=== PATIENT | male | born 1980 | race Caucasian/White ===

== ENCOUNTER 2017-03-12 13:23 | Emergency (ER) | payer BC, OTHER ==
[2017-03-12] MEDS ORDERED: CLONIDINE HCL 0.2 MG TABLET PO ONE (13:45)
--- NOTE | 2017-03-12 13:45 | ER Document Report ---
ED Medical Screen (RME) - General Chief Complaint: High Blood Pressure Stated Complaint: BLOOD PRESSURE PROBLEMS Time Seen by Provider: 03/12/17 13:41 Mode of Arrival: Ambulatory Information source: Patient Notes: 36-year-old diabetic male history of hypertension who is on 20 mg lisinopril daily presents with complaints of high blood pressure headache. Patient notes that he has been off for 2 days he has been taking Tylenol for it. Patient did have recent surgery on his eyes well I have greeted and performed a rapid initial assessment of this patient. A comprehensive ED assessment and evaluation of the patient, analysis of test results and completion of the medical decision making process will be conducted by additional ED providers. PHYSICAL EXAMINATION: GENERAL: Well-appearing, well-nourished and in no acute distress. HEAD: Atraumatic, normocephalic. EYES: Pupils equal round extraocular movements intact, left conjunctive injected ENT: Nares patent NECK: Normal range of motion LUNGS: No respiratory distress Musculoskeletal: Normal range of motion NEUROLOGICAL: Normal speech, normal gait. PSYCH: Normal mood, normal affect. SKIN: Warm, Dry, normal turgor, no rashes or lesions noted. TRAVEL OUTSIDE OF THE [place] IN LAST 30 DAYS: No - Related Data Allergies/Adverse Reactions: No Known Allergies Allergy (Verified 06/15/14 19:55) Past Medical History - Past Medical History Cardiac Medical History: Reports: Hx Hypercholesterolemia Endocrine Medical History: Reports: Hx Diabetes Mellitus Type 2 Renal/ Medical History: Denies: Hx Peritoneal Dialysis - Immunizations Immunizations up to date: Yes Hx Diphtheria, Pertussis, Tetanus Vaccination: Yes Physical Exam - Vital signs Vitals: Temp Pulse Resp BP Pulse Ox 98 F 102 H 16 216/121 H 96 03/12/17 13:26 03/12/17 13:26 03/12/17 13:26 03/12/17 13:26 03/12/17 13:26 Course - Vital Signs Vital signs: Temp Pulse Resp BP Pulse Ox 98 F 102 H 16 216/121 H 96 03/12/17 13:26 03/12/17 13:26 03/12/17 13:26 03/12/17 13:26 03/12/17 13:26
[2017-03-12] MEDS ORDERED: HYDRALAZINE HCL INJ/PF 20 MG/1 ML SDV IV ONE (14:28)
[2017-03-12] MEDS ORDERED: ONDANSETRON HCL INJ/PF 4 MG/2 ML SDV IV ONE (14:28)
--- NOTE | 2017-03-12 14:31 | RADIOLOGY REPORT (SQ) ---
EXAM DESCRIPTION: CT HEAD WITHOUT COMPLETED DATE/TIME: 03/12/2017 2:12 pm REASON FOR STUDY: headache, htn COMPARISON: 2014. TECHNIQUE: Axial images acquired through the brain without intravenous contrast. Images reviewed wi th bone, brain and subdural windows. Images stored on PACS. All CT scanners at this facility use dose modulation, iterative reconstruction, and/or weight based d osing when appropriate to reduce radiation dose to as low as reasonably achievable (ALARA). [facility]: Dose Right [facility]: CareDose [facility]: Dose Right [facility]: Teradose 4D [facility]: Smart TweepsMap RADIATION DOSE: Up-to-date CT equipment and radiation dose reduction techniques were employed. CTDIv ol: 64.6 mGy. DLP: 1163 mGy-cm. mGy. LIMITATIONS: None. FINDINGS: VENTRICLES: Normal size and contour. CEREBRUM: No masses. No hemorrhage. No midline shift. No evidence for acute infarction. Normal gra y/white matter differentiation. No areas of low density in the white matter. CEREBELLUM: No masses. No hemorrhage. No alteration of density. No evidence for acute infarction. EXTRAAXIAL SPACES: No fluid collections. No masses. ORBITS AND GLOBE: No intra- or extraconal masses. Normal contour of globe without masses. CALVARIUM: No fracture. PARANASAL SINUSES: No fluid or mucosal thickening. SOFT TISSUES: No mass or hematoma. OTHER: No other significant finding. IMPRESSION: NORMAL BRAIN CT WITHOUT CONTRAST. EVIDENCE OF ACUTE STROKE: NO. COMMENT: Quality ID # [id number]: Final reports with documentation of one or more dose reduction techniques (e.g., Automated exposure control, adjustment of the mA and/or kV according to patient size, use of iterative reconstruction technique) TECHNICAL DOCUMENTATION: JOB ID: [id number]- All Rights Reserved
[2017-03-12 14:58] LABS: ABSOLUTE BASOPHILS # (AUTO) 0.1 10^3/uL (0.0-0.2); ABSOLUTE LYMPHOCYTES (AUTO) 0.9 10^3/uL (0.5-4.7); ABSOLUTE MONOCYTES (AUTO) 0.3 10^3/uL (0.1-1.4); ABSOLUTE NEUT (AUTO) 5.5 10^3/uL (1.7-8.2); BASOPHILS % (AUTO) 0.8 % (0-2); EOSINOPHILS % (AUTO) 0.6 % (0-6); HEMATOCRIT 36.2 % (37.9-51.0); HEMOGLOBIN 12.9 g/dL (13.5-17.0); HGB HCT DIFFERENCE 2.5; LYMPHOCYTES % (AUTO) 12.7 % (13-45); MEAN CORPUSCULAR HEMOGLOBIN 30.4 pg (27.0-33.4); MEAN CORPUSCULAR HGB CONC 35.7 g/dL (32.0-36.0); MEAN CORPUSCULAR VOLUME 85 fl (80-97); MONOCYTES % (AUTO) 4.6 % (3-13); RED BLOOD COUNT 4.26 10^6/uL (4.35-5.55); RED CELL DISTRIBUTION WIDTH 13.8 % (11.5-14.0); SEGMENTED NEUTROPHILS % (AUTO) 81.3 % (42-78); WHITE BLOOD COUNT 6.8 10^3/uL (4.0-10.5)
[2017-03-12 15:09] LABS: ALANINE AMINOTRANSFERASE 52 U/L (21-72); ALKALINE PHOSPHATASE 85 U/L (38-126); ANION GAP 11 (5-19); ASPARTATE AMINO TRANSFERASE 31 U/L (17-59); BILIRUBIN,DIRECT 0.5 mg/dL (0.0-0.4); BILIRUBIN,TOTAL 1.7 mg/dL (0.2-1.3); BLOOD UREA NITROGEN 24 mg/dL (7-20); CARBON DIOXIDE 26 mmol/L (22-30); CHLORIDE 109 mmol/L (98-107); CREATININE RESULT 1.88 mg/dL (0.52-1.25); GLUCOSE 239 mg/dL (75-110); POTASSIUM 4.6 mmol/L (3.6-5.0); SODIUM 146.2 mmol/L (137-145); TOTAL PROTEIN 7.2 g/dL (6.3-8.2)
[2017-03-12] MEDS ORDERED: LORAZEPAM INJ 2 MG/1 ML VIAL IV ONE (15:22)
--- NOTE | 2017-03-12 15:25 | ER Document Report ---
ED General - General Mode of Arrival: Ambulatory Information source: Patient, Relative TRAVEL OUTSIDE OF THE [place] IN LAST 30 DAYS: No - HPI Patient complains to provider of: Headaches Onset: Yesterday Onset/Duration: Sudden <BENJAMIN FRIED - Last Filed: 03/12/17 23:35> <BELLBEATRISSTEVEN - Last Filed: 03/12/17 23:46> - General Chief Complaint: High Blood Pressure Stated Complaint: BLOOD PRESSURE PROBLEMS Time Seen by Provider: 03/12/17 13:41 Notes: Patient is a 36 year old male that presents to the emergency department for complaints of headaches and high blood pressure onset last night. Patient states that he had a severe headache last night after he got home from work for which he took 2 Tylenol that did not alleviate his pain. Patient states he was then awoken from his sleep around 1:30 am with the same headache and took some more Tylenol, with no help. Patient states that his headache persisted and his took his blood pressure which was a 222/134 for which he then decided to come to the emergency department. Patient also complains of nausea, vomiting, neck stiffness and mild photophobia. Patient denies diarrhea or fever. Patient normally takes 20 mg of lisinopril daily. Patient states that he recently had left eye surgery due to retinopathy and bleeding. (BENJAMIN FRIED) - Related Data Allergies/Adverse Reactions: No Known Allergies Allergy (Verified 06/15/14 19:55) Home Medications: Current Home Medications Atropine Sulfate [Atropine 1% Oph Soln 5 ml] 1 drop DAILY 03/12/17 [History] Neomycin/Polymyxin B/Dexametha [Maxitrol Eye Ointment] 3.5 gm OP Q6H 03/12/17 [ History] Past Medical History - General Information source: Patient, Relative - Social History Smoking Status: Never Smoker Smoking Education Provided: No Frequency of alcohol use: None Drug Abuse: None Family History: Reviewed & Not Pertinent Patient has suicidal ideation: No Patient has homicidal ideation: No - Past Medical History Cardiac Medical History: Reports: Hx Hypercholesterolemia, Hx Hypertension Endocrine Medical History: Reports: Hx Diabetes Mellitus Type 2 - Immunizations Immunizations up to date: Yes Hx Diphtheria, Pertussis, Tetanus Vaccination: Yes <BENJAMIN FRIED - Last Filed: 03/12/17 23:35> Review of Systems - Review of Systems Constitutional: No symptoms reported. denies: Fever EENT: No symptoms reported Cardiovascular: No symptoms reported Respiratory: No symptoms reported Gastrointestinal: No symptoms reported, Nausea, Vomiting. denies: Diarrhea Genitourinary: No symptoms reported Male Genitourinary: No symptoms reported Musculoskeletal: See HPI, Neck pain Skin: No symptoms reported Hematologic/Lymphatic: No symptoms reported Neurological/Psychological: See HPI, Headaches <BENJAMIN FRIED - Last Filed: 03/12/17 23:35> Physical Exam <BENJAMIN FRIED - Last Filed: 03/12/17 23:35> <BELLBEATRISSTEVEN - Last Filed: 03/12/17 23:46> - Vital signs Vitals: Temp Pulse Resp BP Pulse Ox 98 F 102 H 16 216/121 H 96 03/12/17 13:26 03/12/17 13:26 03/12/17 13:26 03/12/17 13:26 03/12/17 13:26 - Notes Notes: GENERAL: Alert, interacts well. No acute distress. HEAD: Normocephalic, atraumatic. EYES: Left pupil dilated, unresponsive, and conjunctival injection. Right pupil round and reactive to light, EOMI. Right sided retinopathy, no acute bleeding, no papilledema. Left fundoscopic unable to see left fundus due to previous surgery, no red reflex. Mild photosensitivity. ENT: Oral mucosa moist, tongue midline. NECK: Full range of motion. Supple. Trachea midline. LUNGS: Clear to auscultation bilaterally, no wheezes, rales, or rhonchi. No respiratory distress. HEART: mild tachycardia. No murmurs, gallops, or rubs. ABDOMEN: Soft, non-tender. Non-distended. Bowel sounds present in all 4 quadrants. EXTREMITIES: Moves all 4 extremities spontaneously. No edema, radial and dorsalis pedis pulses 2/4 bilaterally. No cyanosis. NEUROLOGICAL: Alert and oriented x3. Normal speech. cranial nerves II through XII grossly intact. Biceps and patellar DTRs 2+ bilaterally. PSYCH: Normal affect, normal mood. SKIN: Warm, dry, normal turgor. No rashes or lesions noted. (BENJAMIN FRIED) Course - Laboratory Result Diagrams: 03/12/17 14:24 03/12/17 14:24 <BENJAMIN FRIED - Last Filed: 03/12/17 23:35> - Laboratory Result Diagrams: 03/12/17 14:24 03/12/17 14:24 <STEVEN TAN - Last Filed: 03/12/17 23:46> - Re-evaluation Re-evalutation: 03/12/17 19:27 CBC shows mild anemia with hemoglobin 12.9, no leukocytosis, CMP shows some renal damage with a BUN of 24 and creatinine 1.88, this is slightly improved from 1 week ago however worsened from 2 years ago, it is consistent with his history of diabetic retinopathy, uncontrolled hyperglycemia and uncontrolled hypertension, glucose elevated 239, total and direct bilirubin somewhat elevated , no evidence of biliary pathology at this time, no abdominal tenderness palpation. Lipase normal. Urinalysis shows greater than 500 glucose and protein and small blood old which also supports diabetic nephropathy in addition to his diabetic retinopathy. Given the sudden onset of headache associated with hypertension and some neck pain a lumbar puncture was performed, no red blood cells and no xanthochromia was seen on the fluid analysis. Patient had no relief of his pain after being given hydralazine and clonidine although his blood pressure responded very well to this. The Ativan that he was given for anxiety prior to the lumbar puncture also did not relieve his pain, patient did have complete relief of his pain after being treated with Toradol, Compazine and Benadryl after ruling out subarachnoid hemorrhage. Currently there is no evidence of subarachnoid hemorrhage or meningitis. Patient's symptoms are completely resolved. I suspect his headache was coming from his uncontrolled hypertension. I discussed with the patient and family members that in addition to his diabetic retinopathy the renal function that we see today is consistent with diabetic nephropathy and stressed the importance of taking his insulin as well as following up with his primary care physician for further adjustment his blood pressure medications. Patient will be started on clonidine patch here 0.2 mg and discharged home with a prescription for this as tablets. Patient also needs a refill on his insulin, this will be written. 03/12/17 23:46 Pupillary abnormalities coming from the atropine eyedrops he is using. (STEVEN TAN) - Vital Signs Vital signs: Temp Pulse Resp BP Pulse Ox 98 F 102 H 15 135/83 H 97 03/12/17 13:26 03/12/17 13:26 03/12/17 19:01 03/12/17 19:01 03/12/17 19:01 - Laboratory Laboratory results interpreted by me: 03/12/17 03/12/17 03/12/17 14:24 14:24 16:14 RBC 4.26 L Hgb 12.9 L Hct 36.2 L Seg Neutrophils % 81.3 H Lymphocytes % 12.7 L Sodium 146.2 H Chloride 109 H BUN 24 H Creatinine 1.88 H Est GFR ( Amer) 49 L Est GFR (Non-Af Amer) 40 L Glucose 239 H Total Bilirubin 1.7 H Direct Bilirubin 0.5 H Urine Protein Urine Glucose (UA) Urine Blood CSF Glucose 125 H CSF Total Protein 65 H 03/12/17 17:27 RBC Hgb Hct Seg Neutrophils % Lymphocytes % Sodium Chloride BUN Creatinine Est GFR ( Amer) Est GFR (Non-Af Amer) Glucose Total Bilirubin Direct Bilirubin Urine Protein >=500 H Urine Glucose (UA) >=500 H Urine Blood SMALL H CSF Glucose CSF Total Protein Procedures - Lumbar Puncture Lumbar puncture Consent obtained: Yes Lumbar puncture pre-procedure: Sterile PPE donned, Betadine prep applied, Sterile drapes applied Patient position: Sitting Needle size: 20 Lumbar puncture location: L3-L4 Anesthetic type: 1% Lidocaine mL's of anesthetic: 5 Amount/type of drainage: 4.5 clear, colorless Number of attempts: 1 Complications: No <STEVEN TAN - Last Filed: 03/12/17 23:46> Discharge <BENJAMIN FRIED - Last Filed: 03/12/17 23:35> <STEVEN TAN - Last Filed: 03/12/17 23:46> - Discharge Clinical Impression: Hypertensive urgency Headache Qualifiers: Headache type: unspecified Headache chronicity pattern: acute headache Intractability: intractable Qualified Code(s): R51 - Headache Diabetic retinopathy Qualifiers: Diabetes mellitus type: type 2 Diabetic retinopathy severity: with unspecified retinopathy severity Diabetes mellitus macular edema: macular edema presence unspecified Laterality: bilateral Qualified Code(s): E11.319 - Type 2 diabetes mellitus with unspecified diabetic retinopathy without macular edema Diabetic nephropathy Qualifiers: Diabetes mellitus type: type 2 Qualified Code(s): E11.21 - Type 2 diabetes mellitus with diabetic nephropathy Type 2 diabetes mellitus Qualifiers: Diabetes mellitus complication status: with hyperglycemia Diabetes mellitus termite technician insulin use: with termite technician use Qualified Code(s): E11.65 - Type 2 diabetes mellitus with hyperglycemia Condition: Stable Disposition: HOME, SELF-CARE Additional Instructions: Today you had extremely high blood pressure. We treated it by giving you hydralazine initially and then by giving her clonidine. I have discharged home with clonidine patch 0.2 mg, you should leave this patch on for the next week unless you become dizzy. If you become dizzy please take off the patch and check your blood pressure. Please also check your blood pressure at least twice a day and write it down. As long as her blood pressure does not go below 110 systolic (the upper number) please start taking clonidine 1 tablet twice a day after 7 days. Take off the patch before you start taking these tablets. I have also written you a prescription for your insulin. Please continue taking it as previously prescribed. Today your blood work showed damage to your kidneys which is likely coming from your diabetes and her high blood pressure. It is very important that you follow -up with a primary care physician as an outpatient. Dr. Thrasher is contract paralegal and will see you in follow-up for 1 visit after this appointment[address] Dr. Wanda Wright is also accepting new patients as is Dr. Colon and several of the physicians at local urgent cares such as [facility]. Prescriptions: Clonidine HCl [Catapres 0.2 mg Tablet] 0.2 mg PO Q12 #60 tab Insulin Aspart [Novolog Insulin 100 Unit/1 ml 10 ml] 20 unit SUBCUT AC #10 ml Referrals: KORIN THRASHER MD [ACTIVE STAFF] - Follow up as needed AUDELIA WRIGHT, [NO LOCAL MD] - Follow up as needed ARIN COLON MD [ACTIVE STAFF] - Follow up as needed Scribe Attestation: 03/12/17 23:46 I personally performed the services described in the documentation, reviewed and edited the documentation which was dictated to the scribe in my presence, and it accurately records my words and actions. (STEVEN TAN) Scribe Documentation - Scribe Written by [place]:: [place] Chavez, 03/12/2017 16:13 acting as scribe for :: Ginger <BENJAMIN FRIED - Last Filed: 03/12/17 23:35>
[2017-03-12] MEDS ORDERED: NORMAL SALINE 1000 ML 1,000 ML IV ONE (15:27)
[2017-03-12] MEDS ORDERED: DIPHENHYDRAMINE HCL 50 MG/ML VIAL IV ONE (16:25)
[2017-03-12] MEDS ORDERED: PROCHLORPERAZINE EDISYLATE INJ 10 MG/2 ML VIAL IV ONE (16:25)
[2017-03-12 17:22] LABS: GLUCOSE,CSF 125 mg/dL (40-70)
[2017-03-12 17:24] LABS: APPEARANCE TUBE 1 CLEAR
[2017-03-12 17:26] LABS: RBC AVERAGE 0.5; RBC SIDE 1 1; RBC SIDE 2 0
[2017-03-12 17:27] LABS: RBC DILUENT USED NONE USED; RBC DILUTION FACTOR 1; TOTAL RBC SQUARES COUNTED 225
[2017-03-12 17:29] LABS: WHITE BLOOD CELL,CSF 1 /uL (0-5)
[2017-03-12 17:30] LABS: APPEARANCE ALL TUBES CLEAR
[2017-03-12 17:31] LABS: RBC DILUENT USED NONE USED; RBC DILUTION FACTOR 1; RBC SIDE 1 0; RBC SIDE 2 0; TOTAL RBC SQUARES COUNTED 225
[2017-03-12 17:32] LABS: WHITE BLOOD CELL,CSF 0 /uL (0-5)
[2017-03-12] MEDS ORDERED: KETOROLAC TROMETHAMINE 60 MG/2 ML SDV IV ONE (17:32)
[2017-03-12 17:51] LABS: APPEARANCE,URINE SLIGHTLY-CLOUDY; BILIRUBIN,URINE NEGATIVE (NEGATIVE); GLUCOSE, URINE >=500 mg/dL (NEGATIVE); KETONES,URINE NEGATIVE (NEGATIVE); LEUKOCYTE ESTERASE,URINE NEGATIVE (NEGATIVE); NITRITE,URINE NEGATIVE (NEGATIVE); PROTEIN,URINE >=500 mg/dL (NEGATIVE); URINE SPECIFIC GRAVITY 1.026; UROBILINOGEN,URINE NEGATIVE mg/dL (<2.0)
[2017-03-12 18:23] VITALS: BP 135/83
[2017-03-12] MEDS ORDERED: CLONIDINE 0.2 MG/24 HR PATCH.TDWK TD ONE (19:24)
[2017-03-12] MEDS ORDERED: CLONIDINE 0.2 MG/24 HR PATCH.TDWK ONE (19:40)
== END 2017-03-12 20:00 | disposition home or self-care (01) ==
LOC: ER 13:23
DX: I16.0 Hypertensive urgency (principal); I10 Essential (primary) hypertension; Z79.899 Other long term (current) drug therapy; E11.319 Type 2 diabetes mellitus with unspecified diabetic retinopathy without macular edema; Z98.890 Other specified postprocedural states; E11.21 Type 2 diabetes mellitus with diabetic nephropathy; E11.65 Type 2 diabetes mellitus with hyperglycemia; Z79.4 Long term (current) use of insulin; R51 Headache; D64.9 Anemia, unspecified; R11.2 Nausea with vomiting, unspecified; M43.6 Torticollis; H53.149 Visual discomfort, unspecified; F41.9 Anxiety disorder, unspecified; R00.0 Tachycardia, unspecified
CPT/HCPCS: 99284; 96361; 96374; 96375; 36415; 87070; 87205; 83690; 85025; 89050; 82945; 84157; 80053; 81001; 70450; 62270; J1200; J1885; J0360; J2060; J0780; J2405; J7030; J3490

== ENCOUNTER 2018-04-01 23:31 | Inpatient (IN) | payer OTHER ==
[2018-04-01] MEDS ORDERED: METOCLOPRAMIDE HCL INJ/PF 10 MG/2 ML SDV IV ONE (23:42)
--- NOTE | 2018-04-01 23:42 | ER Document Report ---
ED General - General Mode of Arrival: Ambulatory Information source: Patient TRAVEL OUTSIDE OF THE [place] IN LAST 30 DAYS: No <BENJAMIN FRIED - Last Filed: 04/02/18 00:11> <STEVEN TAN - Last Filed: 04/02/18 04:21> - General Stated Complaint: INTOXICATION Time Seen by Provider: 04/01/18 23:42 Notes: Patient is a 37-year-old male with diabetes, hypertension, high cholesterol, renal failure presents emergency department accompanied by mother due to vomiting and loss of consciousness. Mother states that the patient had been consuming alcohol after which he became combative, started vomiting and proceeded to "pass out". Mother mentions that patient checked his blood sugar before he ate this evening and was found it to be 408. Mother denies a history of [place], strokes, pancreatitis or blood clots. Mother expresses concern of swelling in the patients right ankle. She denies any recent injury. Patient follows up in [place] regarding his health care. EMS states they found the patient unresponsive covered in vomit. They proceeded to administer 12 mg of Zofran en route to the emergency department. (BENJAMIN FRIED) - Related Data Allergies/Adverse Reactions: No Known Allergies Allergy (Verified 04/02/18 00:45) Past Medical History - General Information source: Parent - Social History Smoking Status: Never Smoker Cigarette use (# per day): No Chew tobacco use (# tins/day): No Smoking Education Provided: No Frequency of alcohol use: Social Drug Abuse: None Family History: Reviewed & Not Pertinent - Past Medical History Cardiac Medical History: Reports: Hx Hypercholesterolemia, Hx Hypertension Endocrine Medical History: Reports: Hx Diabetes Mellitus Type 2 - Immunizations Immunizations up to date: Yes Hx Diphtheria, Pertussis, Tetanus Vaccination: Yes <BENJAMIN FRIED - Last Filed: 04/02/18 00:11> Review of Systems - Review of Systems Constitutional: No symptoms reported EENT: No symptoms reported Cardiovascular: No symptoms reported Respiratory: No symptoms reported Gastrointestinal: See HPI, Vomiting Genitourinary: No symptoms reported Male Genitourinary: No symptoms reported Musculoskeletal: No symptoms reported Skin: No symptoms reported Hematologic/Lymphatic: No symptoms reported Neurological/Psychological: See HPI, Lost consciousness -: Yes All other systems reviewed and negative <BENJAMIN FRIED - Last Filed: 04/02/18 00:11> Physical Exam <BENJAMIN FRIED - Last Filed: 04/02/18 00:11> <STEVEN TAN - Last Filed: 04/02/18 04:21> - Vital signs Vitals: Temp Pulse Resp BP Pulse Ox 97.1 F 95 21 H 125/68 94 04/01/18 23:44 04/01/18 23:44 04/01/18 23:44 04/01/18 23:44 04/01/18 23:44 - Notes Notes: GENERAL: Somnolent. Actively vomiting, clothes covered in vomit. HEAD: Normocephalic, atraumatic. EYES: Pupils equal, round, and reactive to light. Extraocular movements intact. ENT: Oral mucosa moist, tongue midline. NECK: Full range of motion. Supple. Trachea midline. LUNGS: Clear to auscultation bilaterally, no wheezes, rales, or rhonchi. No respiratory distress. HEART: Regular rate and rhythm. No murmurs, gallops, or rubs. ABDOMEN: Soft, non-tender. Non-distended. Bowel sounds present in all 4 quadrants. EXTREMITIES: Moves all 4 extremities spontaneously. Swelling to right ankle. NEUROLOGICAL: Somnolent. SKIN: Warm, dry, normal turgor. No rashes or lesions noted. (BENJAMIN FRIED) Patient was able to roll himself over in bed, grasp the emesis basin, was able to nod yes and no when asked if he needed to vomit. Did not answer any other questions. Moves all 4 extremities equally. (STEVEN TAN) Course - Laboratory Result Diagrams: 04/01/18 23:55 04/01/18 23:55 <BENJAMIN FRIED - Last Filed: 04/02/18 00:11> - Laboratory Result Diagrams: 04/01/18 23:55 04/01/18 23:55 <STEVEN TAN - Last Filed: 04/02/18 04:21> - Re-evaluation Re-evalutation: 04/02/18 03:32 CBC shows mild anemia with hemoglobin 11.0, INR slightly prolonged at 1.038, venous blood gas grossly unremarkable, CMP shows acute on chronic renal failure , BUN is 68 approximately 1 year ago it was 24 creatinine is 4.43, approximately 1 year ago was 1.88. Family does not know what his numbers usually are, glucose is elevated 237, lactic acid elevated at 3.2, nothing else points towards infection, there is no fever or leukocytosis. Serum alcohol is 180, family states he is not a habitual drinker. This may account for some of his somnolence. Patient has been hydrated and vomiting has stopped. Patient is sleeping now and quite comfortable. Patient was somewhat hypoxic on arrival and was placed on 1 L via nasal cannula, pulse oximeter is now 100% on 1 L via nasal cannula with good waveform, this is not hypoxic per my interpretation. We will trial him off of nasal cannula. Chest x-ray is still pending. EKG shows sinus tachycardia at a rate of 101, normal axis, normal intervals, no ST segment elevations or depressions, T wave inversions noted in lead III and biphasic T waves in aVF per my interpretation. 04/02/18 04:19 Chest x-ray shows no acute process. Discussed patient with Dr. Stewart who agrees to admit the patient to her service for acute on chronic renal failure. ( STEVEN TAN) - Vital Signs Vital signs: Temp Pulse Resp BP Pulse Ox 97.1 F 98 18 101/72 100 04/01/18 23:44 04/02/18 00:45 04/02/18 00:45 04/02/18 00:45 04/02/18 00:45 - Laboratory Laboratory results interpreted by me: 04/01/18 04/01/18 04/01/18 23:40 23:55 23:55 RBC 3.56 L Hgb 11.0 L Hct 30.7 L Sodium 146.2 H BUN 68 H Creatinine 4.43 H Est GFR ( Amer) 18 L Est GFR (Non-Af Amer) 15 L Glucose 237 H POC Glucose 257 H Lactic Acid 04/01/18 23:55 RBC Hgb Hct Sodium BUN Creatinine Est GFR ( Amer) Est GFR (Non-Af Amer) Glucose POC Glucose Lactic Acid 3.2 H - EKG Interpretation by Me Additional EKG results interpreted by me: 04/02/18 04:19 EKG shows sinus tachycardia at a rate of 101, normal axis, normal intervals, no ST segment elevations or depressions, T wave inversions noted in lead III and biphasic T waves in aVF per my interpretation. (STEVEN TAN) Discharge <BENJAMIN FRIED - Last Filed: 04/02/18 00:11> - Discharge Admitting Provider: Kayleigh White Unit Admitted: Telemetry <STEVEN TAN - Last Filed: 04/02/18 04:21> - Discharge Clinical Impression: Acute on chronic renal failure Qualifiers: Acute renal failure type: unspecified Chronic kidney disease stage: stage 4 ( severe) Qualified Code(s): N17.9 - Acute kidney failure, unspecified; N18.4 - Chronic kidney disease, stage 4 (severe); N18.4 - Chronic kidney disease, stage 4 (severe); N18.4 - Chronic kidney disease, stage 4 (severe); N18.4 - Chronic kidney disease, stage 4 (severe) Vomiting Qualifiers: Vomiting type: unspecified Vomiting Intractability: non-intractable Nausea presence: with nausea Qualified Code(s): R11.2 - Nausea with vomiting, unspecified Condition: Fair Disposition: ADMITTED INPATIENT Referrals: MARK CARLIN PA-C [NO LOCAL MD] - Follow up as needed Scribe Attestation: 04/02/18 04:21 I personally performed the services described in the documentation, reviewed and edited the documentation which was dictated to the scribe in my presence, and it accurately records my words and actions. (STEVEN TAN) Scribe Documentation - Scribe Written by Scribe:: [place] hCavez, 04/01/2018 23:56 acting as scribe for :: Ginger <BENJAMIN FRIED - Last Filed: 04/02/18 00:11>
[2018-04-01] MEDS ORDERED: NORMAL SALINE 1000 ML 1,000 ML IV ONE (23:56)
[2018-04-02 00:09] LABS: ABSOLUTE BASOPHILS # (AUTO) 0.1 10^3/uL (0.0-0.2); ABSOLUTE LYMPHOCYTES (AUTO) 1.2 10^3/uL (0.5-4.7); ABSOLUTE MONOCYTES (AUTO) 0.4 10^3/uL (0.1-1.4); ABSOLUTE NEUT (AUTO) 5.6 10^3/uL (1.7-8.2); BASOPHILS % (AUTO) 0.9 % (0-2); EOSINOPHILS % (AUTO) 0.5 % (0-6); HEMATOCRIT 30.7 % (37.9-51.0); MEAN CORPUSCULAR HEMOGLOBIN 30.9 pg (27.0-33.4); MEAN CORPUSCULAR HGB CONC 35.9 g/dL (32.0-36.0); MEAN CORPUSCULAR VOLUME 86 fl (80-97); MONOCYTES % (AUTO) 5.4 % (3-13); PLATELET COUNT 167 10^3/uL (150-450); RED BLOOD COUNT 3.56 10^6/uL (4.35-5.55); RED CELL DISTRIBUTION WIDTH 13.5 % (11.5-14.0); SEGMENTED NEUTROPHILS % (AUTO) 77.2 % (42-78); TOTAL CELLS COUNTED % (AUTO) 100 %; WHITE BLOOD COUNT 7.2 10^3/uL (4.0-10.5)
[2018-04-02 00:14] LABS: VENOUS BLOOD BASE EXCESS -0.5 mmol/L; VENOUS BLOOD HCO3 25.8 mmol/L (20-32); VENOUS BLOOD PCO2 51.5 mmHg (35-63); VENOUS BLOOD PH 7.32 (7.30-7.42)
[2018-04-02 00:17] LABS: INTERNATIONAL RATION (INR) 1.03; PROTHROMBIN TIME 14.1 SEC (11.4-15.4)
[2018-04-02 00:26] LABS: ALANINE AMINOTRANSFERASE 23 U/L (21-72); ALBUMIN 4.1 g/dL (3.5-5.0); ALKALINE PHOSPHATASE 83 U/L (38-126); ANION GAP 18 (5-19); ASPARTATE AMINO TRANSFERASE 26 U/L (17-59); BILIRUBIN,DIRECT 0.3 mg/dL (0.0-0.4); BLOOD UREA NITROGEN 68 mg/dL (7-20); CALCIUM 8.8 mg/dL (8.4-10.2); CARBON DIOXIDE 23 mmol/L (22-30); CHLORIDE 105 mmol/L (98-107); GLUCOSE 237 mg/dL (75-110); LIPASE 193.3 U/L (23-300); SODIUM 146.2 mmol/L (137-145); TOTAL PROTEIN 7.4 g/dL (6.3-8.2)
[2018-04-02] MEDS: NORMAL SALINE 1000 ML 1,000 ML IV PRN ×4 (02:01→16:21)
--- NOTE | 2018-04-02 03:40 | RADIOLOGY REPORT (SQ) ---
EXAM DESCRIPTION: XR CHEST 2 VIEWS COMPLETED DATE/TME: 04/02/2018 01:47 CLINICAL HISTORY: 37 years, Male, hypoxia COMPARISON: 11/22/2010 chest x-ray NUMBER OF VIEWS: 2 TECHNIQUE: Frontal and lateral views of the chest LIMITATIONS: None. FINDINGS: Heart size at the upper limits of normal. Lungs are clear. No pneumothorax IMPRESSION: No acute cardiopulmonary process copyright 2010 [employer]- All Rights Reserved
[2018-04-02] MEDS ORDERED: TEMAZEPAM 7.5 MG CAPSULE PO PRN (04:30)
[2018-04-02] MEDS ORDERED: PROMETHAZINE HCL 25 MG TABLET PO PRN (04:30)
[2018-04-02] MEDS ORDERED: PROMETHAZINE HCL INJ 25 MG/1 ML VIAL IV PRN (04:30)
[2018-04-02] MEDS ORDERED: DEXTROSE 50%-WATER 25 GM/50 ML DISP.SYRIN IV PRN ×2 (04:46)
[2018-04-02] MEDS ORDERED: GLUCAGON,HUMAN RECOMB 1 MG INJ IM PRN (04:46)
[2018-04-02] MEDS ORDERED: DEXTROSE 40% GEL 15 GM TUBE PO PRN ×2 (04:46)
[2018-04-02] MEDS: HEPARIN SOD (PORCINE) 5,000 UNIT/ML 1 ML SYRINGE SUBCUT SCH ×3 (05:57→22:00)
[2018-04-02 06:02] LABS: APPEARANCE,URINE SLIGHTLY-CLOUDY; BILIRUBIN,URINE NEGATIVE (NEGATIVE); COLOR,URINE YELLOW; GLUCOSE, URINE >=500 mg/dL (NEGATIVE); KETONES,URINE NEGATIVE (NEGATIVE); LEUKOCYTE ESTERASE,URINE NEGATIVE (NEGATIVE); NITRITE,URINE NEGATIVE (NEGATIVE); PROTEIN,URINE >=500 mg/dL (NEGATIVE); URINE SPECIFIC GRAVITY 1.013; UROBILINOGEN,URINE NEGATIVE mg/dL (<2.0)
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
[2018-04-02] MEDS ORDERED: PANTOPRAZOLE SODIUM 40 MG VIAL IV ONE (06:05)
[2018-04-02 06:09] LABS: URINE AMPHETAMINES SCREEN NEGATIVE; URINE BARBITURATES SCREEN NEGATIVE; URINE BENZODIAZEPINES SCREEN NEGATIVE; URINE COCAINE SCREEN NEGATIVE; URINE MARIJUANA (THC) SCREEN NEGATIVE; URINE METHADONE SCREEN NEGATIVE; URINE PHENCYCLIDINE SCREEN NEGATIVE
[2018-04-02 06:13] LABS: URINE CREATININE 155.4 mg/dL (24-392)
[2018-04-02 06:31] LABS: ABSOLUTE BASOPHILS # (AUTO) 0.1 10^3/uL (0.0-0.2); ABSOLUTE LYMPHOCYTES (AUTO) 1.1 10^3/uL (0.5-4.7); ABSOLUTE MONOCYTES (AUTO) 0.3 10^3/uL (0.1-1.4); ABSOLUTE NEUT (AUTO) 5.8 10^3/uL (1.7-8.2); BASOPHILS % (AUTO) 1.1 % (0-2); EOSINOPHILS % (AUTO) 0.2 % (0-6); HEMATOCRIT 26.5 % (37.9-51.0); HEMOGLOBIN 9.6 g/dL (13.5-17.0); LYMPHOCYTES % (AUTO) 14.6 % (13-45); MEAN CORPUSCULAR HEMOGLOBIN 31.4 pg (27.0-33.4); MEAN CORPUSCULAR HGB CONC 36.2 g/dL (32.0-36.0); MEAN CORPUSCULAR VOLUME 87 fl (80-97); MONOCYTES % (AUTO) 4.4 % (3-13); PLATELET COUNT 149 10^3/uL (150-450); RED BLOOD COUNT 3.07 10^6/uL (4.35-5.55); RED CELL DISTRIBUTION WIDTH 13.1 % (11.5-14.0); SEGMENTED NEUTROPHILS % (AUTO) 79.7 % (42-78); TOTAL CELLS COUNTED % (AUTO) 100 %; WHITE BLOOD COUNT 7.3 10^3/uL (4.0-10.5)
[2018-04-02 06:45] LABS: CHOLESTEROL 284.04 mg/dL (0-200)
[2018-04-02 06:46] LABS: ANION GAP 17 (5-19); BLOOD UREA NITROGEN 63 mg/dL (7-20); CALCIUM 8.1 mg/dL (8.4-10.2); CARBON DIOXIDE 19 mmol/L (22-30); CHLORIDE 111 mmol/L (98-107); GLUCOSE 225 mg/dL (75-110); POTASSIUM 4.7 mmol/L (3.6-5.0); SODIUM 146.6 mmol/L (137-145)
[2018-04-02 07:18] LABS: DIRECT LDL < 30 mg/dL (<100); TRIGLYCERIDES 1769 mg/dL (<150)
--- NOTE | 2018-04-02 08:10 | EKG REPORT ---
SEVERITY:- ABNORMAL ECG - SINUS TACHYCARDIA NONSPECIFIC T ABNORMALITIES, INFERIOR LEADS : Confirmed by: Fredrick Wagner MD 02-Apr-2018 08:10:21
[2018-04-02] MEDS: INSULIN LISPRO 100 UNIT/ML 3 ML VIAL SUBCUT SCH ×3 (08:56→16:20)
[2018-04-02] MEDS ORDERED: LANSOPRAZOLE 15 MG TAB.RAP.DR PO SCH (10:00)
[2018-04-02] MEDS: ACETAMINOPHEN 325 MG TABLET PO PRN (18:17)
[2018-04-02] MEDS: ATORVASTATIN CALCIUM 20 MG TABLET PO SCH (21:59)
[2018-04-02] MEDS: AMLODIPINE BESYLATE 10 MG TABLET PO SCH (21:59)
[2018-04-02] MEDS ORDERED: INSULIN DEGLUDEC 72 UNIT SQ SCH (22:00)
--- NOTE | 2018-04-03 03:43 | RADIOLOGY REPORT (SQ) ---
EXAM DESCRIPTION: US RETROPERITONEUM COMPLETED DATE/TME: 04/02/2018 00:00 CLINICAL HISTORY: 37 years, Male, Acute renal failure COMPARISON: CT to 3:15 TECHNIQUE: Transverse and longitudinal sonographic images of the kidneys and urinary bladder LIMITATIONS: None. FINDINGS: The right kidney has maximal diameter of 12.8 cm, the left 12.8 cm. No renal calculus, mass, or hydronephrosis. No perinephric fluid collection. Cortical medullary differentiation preserved bilaterally. Subjective diffuse urinary bladder wall thickening could reflect incomplete distention. Correlate with urinalysis IMPRESSION: Unremarkable appearance to the kidneys. Subjective urinary bladder wall thickening. copyright 2010 [employer]- All Rights Reserved
[2018-04-03] MEDS: HEPARIN SOD (PORCINE) 5,000 UNIT/ML 1 ML SYRINGE SUBCUT SCH ×3 (05:20→21:20)
[2018-04-03] MEDS: INSULIN LISPRO 100 UNIT/ML 3 ML VIAL SUBCUT SCH ×3 (09:11→16:21)
[2018-04-03] MEDS: NORMAL SALINE 1000 ML 1,000 ML IV PRN (09:14)
[2018-04-03] MEDS: CARVEDILOL 12.5 MG TABLET PO SCH ×2 (12:25→21:43)
[2018-04-03] MEDS: ACETAMINOPHEN 325 MG TABLET PO PRN (13:38)
[2018-04-03 16:03] LABS: ABSOLUTE MONOCYTES (AUTO) 0.5 10^3/uL (0.1-1.4); BASOPHILS % (AUTO) 0.8 % (0-2); EOSINOPHILS % (AUTO) 0.8 % (0-6); HEMATOCRIT 24.6 % (37.9-51.0); HEMOGLOBIN 8.8 g/dL (13.5-17.0); LYMPHOCYTES % (AUTO) 17.4 % (13-45); MEAN CORPUSCULAR HEMOGLOBIN 30.9 pg (27.0-33.4); MEAN CORPUSCULAR HGB CONC 35.7 g/dL (32.0-36.0); MEAN CORPUSCULAR VOLUME 87 fl (80-97); MONOCYTES % (AUTO) 8.6 % (3-13); PLATELET COUNT 140 10^3/uL (150-450); RED BLOOD COUNT 2.85 10^6/uL (4.35-5.55); RED CELL DISTRIBUTION WIDTH 13.6 % (11.5-14.0); SEGMENTED NEUTROPHILS % (AUTO) 72.4 % (42-78); TOTAL CELLS COUNTED % (AUTO) 100 %; WHITE BLOOD COUNT 5.6 10^3/uL (4.0-10.5)
[2018-04-03 16:19] LABS: ALANINE AMINOTRANSFERASE 15 U/L (21-72); ALBUMIN 3.1 g/dL (3.5-5.0); ALKALINE PHOSPHATASE 71 U/L (38-126); ANION GAP 8 (5-19); ASPARTATE AMINO TRANSFERASE 18 U/L (17-59); BILIRUBIN,DIRECT 0.2 mg/dL (0.0-0.4); BILIRUBIN,TOTAL 0.9 mg/dL (0.2-1.3); BLOOD UREA NITROGEN 43 mg/dL (7-20); CALCIUM 8.5 mg/dL (8.4-10.2); CARBON DIOXIDE 24 mmol/L (22-30); CHLORIDE 113 mmol/L (98-107); GLUCOSE 127 mg/dL (75-110); POTASSIUM 4.3 mmol/L (3.6-5.0); SODIUM 144.9 mmol/L (137-145)
[2018-04-03 16:43] LABS: ERYTHROCYTE SEDIMENTATION RATE 95 mm/hr (0-15)
--- NOTE | 2018-04-03 16:48 | RADIOLOGY REPORT (SQ) ---
EXAM DESCRIPTION: HAND RIGHT 3 VIEWS COMPLETED DATE/TIME: 04/03/2018 4:18 pm REASON FOR STUDY: R/O RA COMPARISON: None. EXAM PARAMETERS: NUMBER OF VIEWS: Three views. TECHNIQUE: AP, lateral and oblique radiographic images acquired of the right hand. LIMITATIONS: None. FINDINGS: MINERALIZATION: Normal. BONES: No acute fracture or dislocation. No worrisome bone lesions. JOINTS: No effusions. SOFT TISSUES: Considerable soft tissue swelling. OTHER: No other significant finding. IMPRESSION: Soft tissue swelling. No acute osseous abnormality. TECHNICAL DOCUMENTATION: JOB ID: [id number] [employer]- All Rights Reserved Reading location - IP/workstation name: [email or web address]
[2018-04-03] MEDS: INSULIN ASPART SUBCUT SCH (17:14)
--- NOTE | 2018-04-03 19:31 | PDOC PROGRESS REPORT ---
Subjective Progress Note for:: 04/03/18 Subjective:: No acute events overnight. Patient complaining of generalized low appetite, swelling and left lower extremity pain. Denies any fever, nausea, vomiting, diarrhea, constipation or any urinary symptoms. Reason For Visit: ACUTE RENAL FAILURE Physical Exam Vital Signs: Temp Pulse Resp BP Pulse Ox 98.4 F 115 H 19 164/85 H 94 04/03/18 00:18 04/03/18 14:00 04/03/18 00:18 04/03/18 00:18 04/03/18 00:18 Intake & Output 04/02/18 04/03/18 04/04/18 06:59 06:59 06:59 Intake Total 2250 1000 Output Total 680 793 Balance -680 1457 1000 Weight 105 kg General appearance: PRESENT: no acute distress, obese Respiratory exam: PRESENT: clear to auscultation trevor. ABSENT: rales, rhonchi, wheezes Cardiovascular exam: PRESENT: RRR. ABSENT: diastolic murmur, rubs, systolic murmur GI/Abdominal exam: PRESENT: normal bowel sounds, soft. ABSENT: distended, guarding, mass, organolmegaly, rebound, tenderness Extremities exam: PRESENT: +1 edema Musculoskeletal exam: PRESENT: other - Generalized swelling of the extremities especially worse on the bilateral upper extremities. Patient is not able to make a closed fist. Results Laboratory Results: 04/03/18 15:45 04/03/18 15:45 04/03/18 04/03/18 15:45 15:45 WBC 5.6 RBC 2.85 L Hgb 8.8 L Hct 24.6 L MCV 87 MCH 30.9 MCHC 35.7 RDW 13.6 Plt Count 140 L Seg Neutrophils % 72.4 Lymphocytes % 17.4 Monocytes % 8.6 Eosinophils % 0.8 Basophils % 0.8 Absolute Neutrophils 4.0 Absolute Lymphocytes 1.0 Absolute Monocytes 0.5 Absolute Eosinophils 0.0 Absolute Basophils 0.0 Sodium 144.9 Potassium 4.3 Chloride 113 H Carbon Dioxide 24 Anion Gap 8 BUN 43 H Creatinine 3.43 H Est GFR ( Amer) 24 L Est GFR (Non-Af Amer) 20 L Glucose 127 H Calcium 8.5 Total Bilirubin 0.9 AST 18 ALT 15 L Alkaline Phosphatase 71 C-Reactive Protein 31.0 H Total Protein 6.0 L Albumin 3.1 L Impressions: Renal Ultrasound 04/02/18 00:00 IMPRESSION: Unremarkable appearance to the kidneys. Subjective urinary bladder wall thickening. copyright 2010 [employer]- All Rights Reserved Chest X-Ray 04/02/18 01:47 IMPRESSION: No acute cardiopulmonary process copyright 2010 [employer]- All Rights Reserved Hand X-Ray 04/03/18 00:00 IMPRESSION: Soft tissue swelling. No acute osseous abnormality. Assessment & Plan - Diagnosis (1) Acute on chronic renal failure Qualifiers: Acute renal failure type: unspecified Chronic kidney disease stage: stage 4 (severe) Qualified Code(s): N17.9 - Acute kidney failure, unspecified; N18.4 - Chronic kidney disease, stage 4 (severe); N18.4 - Chronic kidney disease , stage 4 (severe); N18.4 - Chronic kidney disease, stage 4 (severe); N18.4 - Chronic kidney disease, stage 4 (severe) Is this a current diagnosis for this admission?: Yes Plan: Likely due to volume depletion. Has history of stage stage III/IV CKD seen by data consultant as outpatient. Baseline creatinine 2.01 on 2017. Creatinine on admission 4.43 proving to 3.29. Renal ultrasound shows kidneys with normal size for hydronephrosis. Monitor volume status. Avoid nephrotoxic agents. Hold ADVID and diuretics. Pending nephrology consult. [facility] tomorrow. (2) Acute alcohol intoxication Qualifiers: Complication of substance-induced condition: uncomplicated Qualified Code(s ): F10.929 - Alcohol use, unspecified with intoxication, unspecified Is this a current diagnosis for this admission?: Yes (3) Hypertriglyceridemia Is this a current diagnosis for this admission?: Yes Plan: Triglyceride more than 1700 on admission. She takes fish oil at home. Patient was counseled about the risk of possible pancreatitis if hypertriglyceridemia remains untreated. We will start on gemfibrozil and omega-3 fatty acid. Hold statins as it increases risk of myositis if given along with gemfibrozil. Already receiving insulin for his underlying diabetes. (4) Intractable nausea and vomiting Qualifiers: Vomiting type: unspecified Qualified Code(s): R11.2 - Nausea with vomiting , unspecified Is this a current diagnosis for this admission?: Yes Plan: Likely due to alcohol intoxication and worsening uremia. Continue antiemetics. Treat underlying uremia. Monitor for alcohol withdrawal. (5) Uncontrolled diabetes mellitus Qualifiers: Diabetes mellitus type: type 2 Is this a current diagnosis for this admission?: Yes Plan: Uncontrolled. A1c 9.3 on admission. Continue degludec, sliding scale insulin, pre-meal insulin, Accu-Chek, diabetic education. Adjust insulin dosage as needed. (6) Hypertension Qualifiers: Hypertension type: essential hypertension Qualified Code(s): I10 - Essential (primary) hypertension Is this a current diagnosis for this admission?: Yes Plan: Uncontrolled. Due to calcium channel blockers. Hold lisinopril. Carvedilol to 12.25 twice daily. Monitor vitals adjust meds as needed.
[2018-04-03] MEDS: AMLODIPINE BESYLATE 10 MG TABLET PO SCH (21:42)
[2018-04-03] MEDS: ATORVASTATIN CALCIUM 20 MG TABLET PO SCH (21:43)
[2018-04-03] MEDS: TRESIBA U SUBCUT SCH (21:48)
[2018-04-03] MEDS: FUROSEMIDE INJ/PF 40 MG/4 ML SDV IV SCH (21:59)
[2018-04-03] MEDS ORDERED: TRESIBA U SUBCUT SCH (22:00)
--- NOTE | 2018-04-03 22:00 | PDOC CONSULTATION ---
Consultation Consult Date: 04/03/18 Attending physician:: PRUDENCE OSULLIVAN Consult reason:: I was asked to see the patient due to worsening kidney function. History of Present Illness Admission Date/PCP: 04/02/18 04:32 LELE KOWALSKI PA-C History of Present Illness: NABIL CALZADA is a 37 year old male with history of chronic kidney disease stage IV, diabetes, hypertension, hypercholesterolemia specifically hypertriglyceridemia who was admitted and then presented in the emergency room yesterday April 02. Apparently he had an episode of alcohol intoxication causing him to have nausea, vomiting and syncopal episode. He was then brought to the emergency room via EMS. He was given IV fluid hydration with at least 2 L of IV fluid boluses in the emergency room and was continued in in the floor. When he came in he has a BUN of 68 creatinine of 4.43 and estimated GFR of 15. Today he has a BUN of 43, creatinine of 3.43, and EGFR of 20. Previous lab before this was in March 12, 2017 which showed a BUN of 24 creatinine of 1.88 with estimated GFR 40. Patient said that he follows up with linotyper Dr. Liz who is 1 of our partners in [facility] in [place]. He said he has been following up with Dr. Liz for the past year and last seen about a month ago. During that visit he was told that his kidney function was about 20% which is down from 26% previously. He also has been having increasing swelling so Dr. Liz has increased his Lasix from Lasix 40 mg 2 tablets twice a day 2-3 tablets twice a day. He said he does not really go to the [facility] and make more urine than previous with taking 3 tablets twice a day. Upon presentation he is being given IV fluids continuously and so he feels like he is actually more swollen now than when he came in. He reports that his whole body is swollen. He is not aware of proteinuria. He denies any hematuria, use of NSAIDs no history of hepatitis. He had a kidney ultrasound on this admission which showed 3 at 12.8 cm left kidney measuring 12.8 cm otherwise unremarkable. His lisinopril has been held as well as his Lasix since admission. His urinalysis showed more than 513, more than 500 of glucose and small blood with only 3 RBCs. His hemoglobin is also low at 8.8 and patient said he is taking iron for it. He also has a significantly elevated triglycerides. Currently the patient's mental status is at baseline and he denies any more nausea or vomiting. He denies any chest pains, shortness of breath and reports that he feels more fatigued recently with fluctuating appetite. He is making urine with moderate and the patient feels that the amount of fluid he is being given is more than what he is actually urinating out. Past Medical History Cardiac Medical History: Reports: Hyperlipidemia, Hypertension-primary Endocrine Medical History: Reports: Diabetes Mellitus Type 2 Complications of Diabetes: Reports: Nephropathy, Retinopathy Renal/ Medical History: Reports: Chronic Kidney Disease Stage IV, Proteinuria GI Medical History: Reports: Gastroesophageal Reflux Disease Hematology Medical History: Reports Anemia of Chronic Kidney Disease Past Surgical History Past Surgical History: Reports: Other - Eye surgery 5 times due to diabetic retinopathy Social History Information Source: Patient, [facility] Records Smoking Status: Never Smoker Frequency of Alcohol Use: Rare Hx Recreational Drug Use: No Drugs: None Hx Prescription Drug Abuse: No - Advance Directive Resuscitation Status: Full Code Family History Family History: DM - Mother, maternal grandfather and paternal grandfather, Hypertension - Father Parental Family History Reviewed: Yes Children Family History Reviewed: Yes Sibling(s) Family History Reviewed.: Yes Medication/Allergy Home Medications: Amlodipine Besylate [Norvasc 10 mg Tablet] 10 mg PO QHS 04/02/18 Carvedilol [Coreg 6.25 mg Tablet] 6.25 mg PO BID 04/02/18 Cholecalciferol (Vitamin D3) [Vitamin D] 2 cap PO MOTH@1000 04/02/18 Furosemide [Lasix 40 mg Tablet] 120 mg PO BID 04/02/18 Insulin Aspart [Novolog Flexpen] 26 unit SQ TID 04/02/18 Insulin Degludec [Tresiba Flextouch U-100] 100 unit SQ QHS 04/02/18 Lisinopril [Prinivil 40 mg Tablet] 40 mg PO DAILY 04/02/18 Allergies/Adverse Reactions: No Known Allergies Allergy (Verified 04/02/18 00:45) Review of Systems All systems: reviewed and no additional remarkable complaints except as stated Review of Systems: Constitutional: ABSENT: chills, fatigue, fever(s), headache(s), weight gain, weight loss Eyes: ABSENT: visual disturbances Ears: ABSENT: hearing changes Cardiovascular: ABSENT: chest pain, dyspnea on exertion, orthropnea, palpitations; admits leg swelling Respiratory: ABSENT: cough, dyspnea, hemoptysis Gastrointestinal: ABSENT: abdominal pain, constipation, diarrhea, hematemesis, hematochezia, nausea, vomiting Genitourinary: ABSENT: dysuria, hematuria Musculoskeletal: ABSENT: joint swelling Integumentary: ABSENT: rash, wounds Neurological: ABSENT: abnormal gait, abnormal speech, confusion, dizziness, focal weakness, numbness, syncope Psychiatric: ABSENT: anxiety, depression Endocrine: ABSENT: cold intolerance, heat intolerance, polydipsia, polyuria Hematologic/Lymphatic: ABSENT: easy bleeding, easy bruising, lymphadenopathy Physical Exam Vital Signs: Temp Pulse Resp BP Pulse Ox 98.4 F 115 H 19 164/85 H 94 04/03/18 00:18 04/03/18 14:00 04/03/18 00:18 04/03/18 00:18 04/03/18 00:18 Intake & Output 04/02/18 04/03/18 04/04/18 06:59 06:59 06:59 Intake Total 2250 2135 Output Total 482 271 9458 Balance -680 1457 185 Weight 105 kg Exam: General appearance: No acute distress, cooperative, well-developed, well- nourished Head exam: PRESENT: atraumatic, normocephalic; face appears to be swollen Eye exam: PRESENT: Conjunctiva pale, EOMI, PERRLA. ABSENT: conjunctival injection, scleral icterus Mouth exam: PRESENT: moist, neck supple, tongue midline Neck exam: PRESENT: full ROM. ABSENT: carotid bruit, JVD, lymphadenopathy, thyromegaly Respiratory exam: PRESENT: clear to auscultation bilaterally. ABSENT: rales, rhonchi, stridor, wheezes Cardiovascular exam: PRESENT: RRR, +S1, +S2. ABSENT: systolic murmur Pulses: PRESENT: normal radial pulses, normal dorsalis pedis pulses GI/Abdominal exam: PRESENT: normal bowel sounds, soft. ABSENT: guarding, mass, tenderness Rectal exam: Deferred Extremities exam: PRESENT: full ROM. Gait 1 bilateral lower extremity pitting edema, also with mild arms edema ABSENT: calf tenderness Musculoskeletal: PRESENT: full ROM. ABSENT: deformity Neurological exam: PRESENT: alert, Awake, Oriented to person, Oriented to place , Oriented to time, reflexes normal, CN II-XII grossly intact. ABSENT: motor sensory deficit Psychiatric exam: PRESENT: appropriate affect, normal mood. ABSENT: homicidal ideation, suicidal ideation Skin exam: PRESENT: intact, dry, warm. ABSENT: rash Results Laboratory Results: 04/03/18 15:45 04/03/18 15:45 04/03/18 04/03/18 15:45 15:45 WBC 5.6 RBC 2.85 L Hgb 8.8 L Hct 24.6 L MCV 87 MCH 30.9 MCHC 35.7 RDW 13.6 Plt Count 140 L Seg Neutrophils % 72.4 Lymphocytes % 17.4 Monocytes % 8.6 Eosinophils % 0.8 Basophils % 0.8 Absolute Neutrophils 4.0 Absolute Lymphocytes 1.0 Absolute Monocytes 0.5 Absolute Eosinophils 0.0 Absolute Basophils 0.0 Sodium 144.9 Potassium 4.3 Chloride 113 H Carbon Dioxide 24 Anion Gap 8 BUN 43 H Creatinine 3.43 H Est GFR ( Amer) 24 L Est GFR (Non-Af Amer) 20 L Glucose 127 H Calcium 8.5 Total Bilirubin 0.9 AST 18 ALT 15 L Alkaline Phosphatase 71 C-Reactive Protein 31.0 H Total Protein 6.0 L Albumin 3.1 L Impressions: Renal Ultrasound 04/02/18 00:00 IMPRESSION: Unremarkable appearance to the kidneys. Subjective urinary bladder wall thickening. copyright 2010 [employer]- All Rights Reserved Chest X-Ray 04/02/18 01:47 IMPRESSION: No acute cardiopulmonary process copyright 2010 [employer]- All Rights Reserved Hand X-Ray 04/03/18 00:00 IMPRESSION: Soft tissue swelling. No acute osseous abnormality. Assessment & Plan - Diagnosis (1) Acute on chronic renal failure Qualifiers: Acute renal failure type: unspecified Chronic kidney disease stage: stage 4 (severe) Qualified Code(s): N17.9 - Acute kidney failure, unspecified; N18.4 - Chronic kidney disease, stage 4 (severe); N18.4 - Chronic kidney disease , stage 4 (severe); N18.4 - Chronic kidney disease, stage 4 (severe); N18.4 - Chronic kidney disease, stage 4 (severe) Is this a current diagnosis for this admission?: Yes Plan: Patient could have had an acute prerenal azotemia with relative volume depletion upon presentation with lower blood pressure than his usual. Patient was given aggressive fluid hydration and is currently I think at his baseline kidney function. He is nonoliguric. No indication for any urgent or emergent rehabilitation therapy. (2) Chronic kidney disease, stage IV (severe) Is this a current diagnosis for this admission?: Yes Plan: He does appear to have significant proteinuria in urinalysis. Etiology of his CKD is most likely secondary to a combination of diabetic nephropathy and hypertensive nephrosclerosis which are both uncontrolled. We will check phosphorus and intact PTH. At one point I think we will need to resume his lisinopril. (3) Anasarca associated with disorder of kidney Is this a current diagnosis for this admission?: Yes Plan: We need to rule out possible nephrotic range proteinuria most likely secondary to diabetic nephropathy. Needs to rule out paraproteinemia as well. I think the patient must have received a little bit more than IV fluids that he needs. We will check his urine for protein and creatinine as well as protein electrophoresis. I will start him on Lasix 40 mg IV daily and discontinue any IV fluids moving forward. (4) Anemia in chronic kidney disease Qualifiers: Chronic kidney disease stage: stage 4 (severe) Qualified Code(s): N18.4 - Chronic kidney disease, stage 4 (severe); D63.1 - Anemia in chronic kidney disease; D63.1 - Anemia in chronic kidney disease Is this a current diagnosis for this admission?: Yes Plan: We will check iron panel and determine if he needs IV iron infusion. He will need Procrit at one-point. (5) Acute alcohol intoxication Qualifiers: Complication of substance-induced condition: uncomplicated Qualified Code(s ): F10.929 - Alcohol use, unspecified with intoxication, unspecified Is this a current diagnosis for this admission?: Yes (6) Hypertension Qualifiers: Hypertension type: essential hypertension Qualified Code(s): I10 - Essential (primary) hypertension Is this a current diagnosis for this admission?: Yes Plan: Initiation of diuretics most likely going to help this. (7) Hypertriglyceridemia Is this a current diagnosis for this admission?: Yes (8) Uncontrolled diabetes mellitus Qualifiers: Diabetes mellitus type: type 2 Is this a current diagnosis for this admission?: Yes Plan: Defer to primary service. - Notes Notes: Thank you very much for this consultation. I will follow the patient with you. Assessment and plan discussed with patient and mother at bedside. - Time Time Spent: Greater than 70 Minutes
[2018-04-04 02:01] LABS: UR PRO/CREAT RATIO RESULT 2.5 mg/mg (0.0-0.2); URINE CREATININE 41.2 mg/dL (24-392); URINE PROTEIN 102.7 mg/dL (<12)
[2018-04-04] MEDS: HEPARIN SOD (PORCINE) 5,000 UNIT/ML 1 ML SYRINGE SUBCUT SCH ×3 (05:01→23:19)
[2018-04-04 05:45] LABS: ABSOLUTE EOSINOPHILS # (AUTO) 0.1 10^3/uL (0.0-0.6); ABSOLUTE LYMPHOCYTES (AUTO) 1.3 10^3/uL (0.5-4.7); ABSOLUTE MONOCYTES (AUTO) 0.5 10^3/uL (0.1-1.4); ABSOLUTE NEUT (AUTO) 3.7 10^3/uL (1.7-8.2); ABSOLUTE RETICS # 0.061 10^6/uL (0.028-0.122); BASOPHILS % (AUTO) 0.8 % (0-2); EOSINOPHILS % (AUTO) 1.1 % (0-6); HEMATOCRIT 23.7 % (37.9-51.0); HEMOGLOBIN 8.6 g/dL (13.5-17.0); LYMPHOCYTES % (AUTO) 23.5 % (13-45); MEAN CORPUSCULAR HEMOGLOBIN 31.3 pg (27.0-33.4); MEAN CORPUSCULAR HGB CONC 36.2 g/dL (32.0-36.0); MEAN CORPUSCULAR VOLUME 86 fl (80-97); MONOCYTES % (AUTO) 8.8 % (3-13); PLATELET COUNT 135 10^3/uL (150-450); RED BLOOD COUNT 2.74 10^6/uL (4.35-5.55); RED CELL DISTRIBUTION WIDTH 13.1 % (11.5-14.0); RETICULOCYTE COUNT (AUTO) 2.22 % (0.66-2.85); SEGMENTED NEUTROPHILS % (AUTO) 65.8 % (42-78); TOTAL CELLS COUNTED % (AUTO) 100 %; WHITE BLOOD COUNT 5.6 10^3/uL (4.0-10.5)
[2018-04-04 05:52] LABS: ANION GAP 11 (5-19); BLOOD UREA NITROGEN 43 mg/dL (7-20); CALCIUM 8.9 mg/dL (8.4-10.2); CARBON DIOXIDE 23 mmol/L (22-30); CHLORIDE 111 mmol/L (98-107); CHOLESTEROL 287.54 mg/dL (0-200); GLUCOSE 136 mg/dL (75-110); POTASSIUM 4.3 mmol/L (3.6-5.0); SODIUM 144.5 mmol/L (137-145)
[2018-04-04 06:03] LABS: DIRECT LDL 39 mg/dL (<100)
[2018-04-04 06:07] LABS: IRON(TIBC) < 10.1 ug/dL (49-181); TRIGLYCERIDES 1020 mg/dL (<150)
[2018-04-04] MEDS: OMEGA-3 ACID ETHYL ESTERS 1 GM CAPSULE PO SCH ×2 (09:36→16:59)
[2018-04-04] MEDS: FUROSEMIDE INJ/PF 40 MG/4 ML SDV IV SCH (09:36)
[2018-04-04] MEDS: CARVEDILOL 12.5 MG TABLET PO SCH ×2 (09:36→22:10)
[2018-04-04] MEDS: INSULIN ASPART SUBCUT SCH ×3 (09:36→16:59)
--- NOTE | 2018-04-04 11:20 | XCELERA REPORT ---
[address] [place] [facility] [address] Lower Extremity Venous Evaluation Procedure: Color flow and duplex imaging of the veins of the right lower extremity as well as the left Common Femoral vein. Right Sided Venous Evaluation Normal vessel filling wall to wall, compression and augmentation as well as Colour flow down to the infrageniculate veins. Left Sided Venous Evaluation The left common femoral vein is fully compressible. Spontaneous and phasic flow is present in the left common femoral vein. Interpretation Summary No duplex evidence of DVT or obstruction in the right lower extremity nor in the left Common Femoral vein. Name: NABIL CALZADA Age: 37 yrs Gender: Male : 1980 Patient Status: Inpatient Patient Location: [address] [place] [address] Study Date: 04/03/2018 07:43 PM Reason For Study: RLE Swelling Ordering Physician: PRUDENCE OSULLIVAN Performed By: Avis Garcia : PRUDENCE OSULLIVAN > Blayne Messina
[2018-04-04] MEDS: GEMFIBROZIL 600 MG TABLET PO SCH ×2 (12:00→16:59)
[2018-04-04] MEDS: INSULIN LISPRO 100 UNIT/ML 3 ML VIAL SUBCUT PRN ×2 (12:26→16:49)
--- NOTE | 2018-04-04 15:04 | PDOC PROGRESS REPORT ---
Subjective Progress Note for:: 04/04/18 Subjective:: 04/03/2018. No acute events overnight. Patient complaining of generalized low appetite, swelling and left lower extremity pain. Denies any fever, nausea, vomiting, diarrhea, constipation or any urinary symptoms. 04/04/2018. No acute events overnight. He is stating that he is feeling better than yesterday but is still complaining of generalized swelling especially worse on the right upper extremity. Denies any nausea, vomiting, diarrhea, constipation or any urinary symptoms. Reason For Visit: ACUTE RENAL FAILURE Physical Exam Vital Signs: Temp Pulse Resp BP Pulse Ox 98.5 F 90 18 164/82 H 95 04/04/18 11:30 04/04/18 14:00 04/04/18 11:30 04/04/18 11:30 04/04/18 11:30 Intake & Output 04/03/18 04/04/18 04/05/18 06:59 06:59 06:59 Intake Total 2250 3135 Output Total 793 1950 Balance 1457 1185 Weight 105 kg 110.4 kg General appearance: PRESENT: obese Head exam: PRESENT: atraumatic, normocephalic Respiratory exam: PRESENT: clear to auscultation trevor. ABSENT: rales, rhonchi, wheezes Cardiovascular exam: PRESENT: RRR. ABSENT: diastolic murmur, rubs, systolic murmur GI/Abdominal exam: PRESENT: normal bowel sounds, soft. ABSENT: distended, guarding, mass, organolmegaly, rebound, tenderness Extremities exam: PRESENT: +1 edema Skin exam: PRESENT: dry, intact, warm. ABSENT: cyanosis, rash Results Laboratory Results: 04/04/18 05:07 04/04/18 05:07 04/03/18 04/03/18 04/04/18 15:45 15:45 05:07 WBC 5.6 5.6 RBC 2.85 L 2.74 L Hgb 8.8 L 8.6 L Hct 24.6 L 23.7 L MCV 87 86 MCH 30.9 31.3 MCHC 35.7 36.2 H RDW 13.6 13.1 Plt Count 140 L 135 L Seg Neutrophils % 72.4 65.8 Lymphocytes % 17.4 23.5 Monocytes % 8.6 8.8 Eosinophils % 0.8 1.1 Basophils % 0.8 0.8 Absolute Neutrophils 4.0 3.7 Absolute Lymphocytes 1.0 1.3 Absolute Monocytes 0.5 0.5 Absolute Eosinophils 0.0 0.1 Absolute Basophils 0.0 0.0 Retic Count (auto) 2.22 Absolute Retic 0.061 Sodium 144.9 Potassium 4.3 Chloride 113 H Carbon Dioxide 24 Anion Gap 8 BUN 43 H Creatinine 3.43 H Est GFR ( Amer) 24 L Est GFR (Non-Af Amer) 20 L Glucose 127 H Calcium 8.5 Phosphorus Iron TIBC % Saturation Ferritin Total Bilirubin 0.9 AST 18 ALT 15 L Alkaline Phosphatase 71 C-Reactive Protein 31.0 H Total Protein 6.0 L Albumin 3.1 L Triglycerides Cholesterol LDL Cholesterol Direct VLDL Cholesterol HDL Cholesterol Vitamin B12 Folate PTH Intact 04/04/18 04/04/18 05:07 05:07 WBC RBC Hgb Hct MCV MCH MCHC RDW Plt Count Seg Neutrophils % Lymphocytes % Monocytes % Eosinophils % Basophils % Absolute Neutrophils Absolute Lymphocytes Absolute Monocytes Absolute Eosinophils Absolute Basophils Retic Count (auto) Absolute Retic Sodium 144.5 Potassium 4.3 Chloride 111 H Carbon Dioxide 23 Anion Gap 11 BUN 43 H Creatinine 3.43 H Est GFR ( Amer) 24 L Est GFR (Non-Af Amer) 20 L Glucose 136 H Calcium 8.9 Phosphorus 4.0 Iron < 10.1 L TIBC 212 L % Saturation UNABLE TO CALCULATE Ferritin 410.00 Total Bilirubin AST ALT Alkaline Phosphatase C-Reactive Protein Total Protein Albumin Triglycerides 1020 H Cholesterol 287.54 H LDL Cholesterol Direct 39 VLDL Cholesterol UNABLE TO CALCULATE HDL Cholesterol 22 L Vitamin B12 261.0 Folate 15.60 PTH Intact 186.2 H 04/02/18 04:38 Catheterized Urine Urine Culture - Final NO GROWTH 2 DAYS Impressions: Renal Ultrasound 04/02/18 00:00 IMPRESSION: Unremarkable appearance to the kidneys. Subjective urinary bladder wall thickening. copyright 2010 [employer]- All Rights Reserved Chest X-Ray 04/02/18 01:47 IMPRESSION: No acute cardiopulmonary process copyright 2010 [employer]- All Rights Reserved Hand X-Ray 04/03/18 00:00 IMPRESSION: Soft tissue swelling. No acute osseous abnormality. Assessment & Plan - Diagnosis (1) Acute on chronic renal failure Qualifiers: Acute renal failure type: unspecified Chronic kidney disease stage: stage 4 (severe) Qualified Code(s): N17.9 - Acute kidney failure, unspecified; N18.4 - Chronic kidney disease, stage 4 (severe); N18.4 - Chronic kidney disease , stage 4 (severe); N18.4 - Chronic kidney disease, stage 4 (severe); N18.4 - Chronic kidney disease, stage 4 (severe) Is this a current diagnosis for this admission?: Yes Plan: Likely due to volume depletion. Has history of stage stage III/IV CKD seen by internal medicine doctor as outpatient. Baseline creatinine 2.01 on 2017. PTH level 186. Creatinine on admission 4.43. Is stable at 3.23 for the last 2 days. Likely his new baseline. Renal ultrasound shows kidneys with normal size for hydronephrosis. Patient received aggressive volume resuscitation on admission due to hypotension and dehydration which may have inadvertently volume overloaded him. Patient is not oliguric started on diuretics by nephrology. Strict in and out. Monitor volume status. Avoid nephrotoxic agents. Hold DAVID and diuretics for now. Neurology following. (2) Acute alcohol intoxication Qualifiers: Complication of substance-induced condition: uncomplicated Qualified Code(s ): F10.929 - Alcohol use, unspecified with intoxication, unspecified Is this a current diagnosis for this admission?: Yes Plan: Does not seem to be in withdrawal. Continue monitoring for withdrawal. (3) Hypertriglyceridemia Is this a current diagnosis for this admission?: Yes Plan: Triglyceride more than 1700 on admission. Repeat triglyceride on 04/03/2018 1020. Patient was counseled about the risk of possible pancreatitis if hypertriglyceridemia remains untreated. We will start on gemfibrozil and omega-3 fatty acid. Hold statins as it increases risk of myositis if given along with gemfibrozil. Already receiving insulin for his underlying diabetes. (4) Intractable nausea and vomiting Qualifiers: Vomiting type: unspecified Qualified Code(s): R11.2 - Nausea with vomiting , unspecified Is this a current diagnosis for this admission?: Yes Plan: Likely due to alcohol intoxication and azotemia. Improved. Continue antiemetics. Treat underlying uremia. Monitor for alcohol withdrawal. (5) Uncontrolled diabetes mellitus Qualifiers: Diabetes mellitus type: type 2 Is this a current diagnosis for this admission?: Yes Plan: Controlled. A1c 9.3 on admission. Continue degludec, sliding scale insulin, pre-meal insulin, Accu-Chek, diabetic education. Adjust insulin dosage as needed. (6) Hypertension Qualifiers: Hypertension type: essential hypertension Qualified Code(s): I10 - Essential (primary) hypertension Is this a current diagnosis for this admission?: Yes Plan: Uncontrolled. Due to calcium channel blockers. Hold lisinopril. Carvedilol to 12.25 twice daily. Started on Lasix twice daily. (7) Anemia in chronic kidney disease Qualifiers: Chronic kidney disease stage: stage 4 (severe) Qualified Code(s): N18.4 - Chronic kidney disease, stage 4 (severe); D63.1 - Anemia in chronic kidney disease; D63.1 - Anemia in chronic kidney disease Is this a current diagnosis for this admission?: Yes Plan: Low iron, elevated ferritin. Nephrology considering iron infusion and Procrit at some point. Agree with management. Daily CBC, supportive transfusions if needed.
--- NOTE | 2018-04-04 21:39 | PDOC PROGRESS REPORT ---
Subjective Progress Note for:: 04/04/18 Subjective:: Patient appears to be better. His facial swelling is improving. He is responding very well to the IV Lasix. Is also feeling better although he still feels tired. Overall everything seems to be improving. Reason For Visit: ACUTE RENAL FAILURE Physical Exam Vital Signs: Temp Pulse Resp BP Pulse Ox 98.2 F 89 17 161/91 H 96 04/04/18 15:51 04/04/18 15:51 04/04/18 15:51 04/04/18 15:51 04/04/18 15:51 Intake & Output 04/03/18 04/04/18 04/05/18 06:59 06:59 06:59 Intake Total 2250 3135 1230 Output Total 793 1950 2200 Balance 1457 1185 -970 Weight 105 kg 110.4 kg Exam: General appearance: PRESENT: no acute distress, cooperative, well-developed, well-nourished Head exam: PRESENT: atraumatic, normocephalic, decrease facial swelling Eye exam: PRESENT: conjunctiva pale, PERRLA. ABSENT: scleral icterus Neck exam: ABSENT: JVD Respiratory exam: PRESENT: Normal breath sounds. ABSENT: crackles, rales, rhonchi, unlabored, wheezes Cardiovascular exam: PRESENT: Regular rate rhythm -+S1, +S2. ABSENT: diastolic murmur, systolic murmur GI/Abdominal exam: PRESENT: normal bowel sounds, soft. ABSENT: guarding, mass, tenderness Extremities exam: Decreasing grade 1 bilateral lower extremity edema Neurological exam: PRESENT: alert, awake, oriented to person, place and time. Skin exam: PRESENT: dry, warm, Results Laboratory Results: 04/04/18 05:07 04/04/18 05:07 04/04/18 04/04/18 04/04/18 05:07 05:07 05:07 WBC 5.6 RBC 2.74 L Hgb 8.6 L Hct 23.7 L MCV 86 MCH 31.3 MCHC 36.2 H RDW 13.1 Plt Count 135 L Seg Neutrophils % 65.8 Lymphocytes % 23.5 Monocytes % 8.8 Eosinophils % 1.1 Basophils % 0.8 Absolute Neutrophils 3.7 Absolute Lymphocytes 1.3 Absolute Monocytes 0.5 Absolute Eosinophils 0.1 Absolute Basophils 0.0 Retic Count (auto) 2.22 Absolute Retic 0.061 Sodium 144.5 Potassium 4.3 Chloride 111 H Carbon Dioxide 23 Anion Gap 11 BUN 43 H Creatinine 3.43 H Est GFR ( Amer) 24 L Est GFR (Non-Af Amer) 20 L Glucose 136 H Calcium 8.9 Phosphorus 4.0 Iron < 10.1 L TIBC 212 L % Saturation UNABLE TO CALCULATE Ferritin 410.00 Triglycerides 1020 H Cholesterol 287.54 H LDL Cholesterol Direct 39 VLDL Cholesterol UNABLE TO CALCULATE HDL Cholesterol 22 L Vitamin B12 261.0 Folate 15.60 PTH Intact 186.2 H 04/04/18 16:30 WBC RBC Hgb Hct MCV MCH MCHC RDW Plt Count Seg Neutrophils % Lymphocytes % Monocytes % Eosinophils % Basophils % Absolute Neutrophils Absolute Lymphocytes Absolute Monocytes Absolute Eosinophils Absolute Basophils Retic Count (auto) Absolute Retic Sodium Potassium Chloride Carbon Dioxide Anion Gap BUN Creatinine Est GFR ( Amer) Est GFR (Non-Af Amer) Glucose Calcium Phosphorus 4.4 Iron TIBC % Saturation Ferritin Triglycerides Cholesterol LDL Cholesterol Direct VLDL Cholesterol HDL Cholesterol Vitamin B12 Folate PTH Intact 04/02/18 04:38 Catheterized Urine Urine Culture - Final NO GROWTH 2 DAYS Impressions: Renal Ultrasound 04/02/18 00:00 IMPRESSION: Unremarkable appearance to the kidneys. Subjective urinary bladder wall thickening. copyright 2010 [employer]- All Rights Reserved Chest X-Ray 04/02/18 01:47 IMPRESSION: No acute cardiopulmonary process copyright 2010 [employer]- All Rights Reserved Hand X-Ray 04/03/18 00:00 IMPRESSION: Soft tissue swelling. No acute osseous abnormality. Assessment & Plan - Diagnosis (1) Acute on chronic renal failure Qualifiers: Acute renal failure type: unspecified Chronic kidney disease stage: stage 4 (severe) Qualified Code(s): N17.9 - Acute kidney failure, unspecified; N18.4 - Chronic kidney disease, stage 4 (severe); N18.4 - Chronic kidney disease , stage 4 (severe); N18.4 - Chronic kidney disease, stage 4 (severe); N18.4 - Chronic kidney disease, stage 4 (severe) Is this a current diagnosis for this admission?: Yes Plan: Improving with diuretics. We will continue the same. (2) Chronic kidney disease, stage IV (severe) Is this a current diagnosis for this admission?: Yes Plan: His urine protein to creatinine ratio is 2.5. We will need to resume his lisinopril if his kidney function stabilized. (3) Anasarca associated with disorder of kidney Is this a current diagnosis for this admission?: Yes Plan: Continue same dose of IV Lasix for now. (4) Anemia in chronic kidney disease Qualifiers: Chronic kidney disease stage: stage 4 (severe) Qualified Code(s): N18.4 - Chronic kidney disease, stage 4 (severe); D63.1 - Anemia in chronic kidney disease; D63.1 - Anemia in chronic kidney disease Is this a current diagnosis for this admission?: Yes Plan: We will start him on Procrit after giving iron. (5) Iron deficiency anemia Is this a current diagnosis for this admission?: Yes Plan: We will give a dose of IV Injectafer. (6) Hypertension Qualifiers: Hypertension type: essential hypertension Qualified Code(s): I10 - Essential (primary) hypertension Is this a current diagnosis for this admission?: Yes Plan: Increase carvedilol to 25 mg p.o. every 12. (7) Acute alcohol intoxication Qualifiers: Complication of substance-induced condition: uncomplicated Qualified Code(s ): F10.929 - Alcohol use, unspecified with intoxication, unspecified Is this a current diagnosis for this admission?: Yes Plan: Resolved. (8) Hypertriglyceridemia Is this a current diagnosis for this admission?: Yes (9) Uncontrolled diabetes mellitus Qualifiers: Diabetes mellitus type: type 2 Is this a current diagnosis for this admission?: Yes (10) Secondary hyperparathyroidism Is this a current diagnosis for this admission?: Yes Plan: Start calcitriol. - Time Time with patient: 15-25 minutes
[2018-04-04] MEDS: AMLODIPINE BESYLATE 10 MG TABLET PO SCH (22:08)
[2018-04-04] MEDS: ATORVASTATIN CALCIUM 20 MG TABLET PO SCH (22:11)
[2018-04-04] MEDS ORDERED: FERRIC CARBOXYMALTOSE 750 MG in NORMAL SALINE 100 ML IV ONE (23:00)
[2018-04-04] MEDS: TRESIBA U SUBCUT SCH (23:23)
[2018-04-05] MEDS: HEPARIN SOD (PORCINE) 5,000 UNIT/ML 1 ML SYRINGE SUBCUT SCH ×3 (05:59→22:07)
[2018-04-05 06:16] LABS: ABSOLUTE EOSINOPHILS # (AUTO) 0.1 10^3/uL (0.0-0.6); ABSOLUTE LYMPHOCYTES (AUTO) 1.2 10^3/uL (0.5-4.7); ABSOLUTE MONOCYTES (AUTO) 0.5 10^3/uL (0.1-1.4); BASOPHILS % (AUTO) 0.8 % (0-2); EOSINOPHILS % (AUTO) 1.4 % (0-6); HEMATOCRIT 23.8 % (37.9-51.0); HEMOGLOBIN 8.5 g/dL (13.5-17.0); LYMPHOCYTES % (AUTO) 25.2 % (13-45); MEAN CORPUSCULAR HGB CONC 35.9 g/dL (32.0-36.0); MEAN CORPUSCULAR VOLUME 86 fl (80-97); MONOCYTES % (AUTO) 9.8 % (3-13); PLATELET COUNT 143 10^3/uL (150-450); RED BLOOD COUNT 2.75 10^6/uL (4.35-5.55); RED CELL DISTRIBUTION WIDTH 13.1 % (11.5-14.0); SEGMENTED NEUTROPHILS % (AUTO) 62.8 % (42-78); TOTAL CELLS COUNTED % (AUTO) 100 %; WHITE BLOOD COUNT 4.7 10^3/uL (4.0-10.5)
[2018-04-05 06:42] LABS: ALANINE AMINOTRANSFERASE 13 U/L (21-72); ALBUMIN 3.3 g/dL (3.5-5.0); ALKALINE PHOSPHATASE 71 U/L (38-126); ANION GAP 12 (5-19); ASPARTATE AMINO TRANSFERASE 19 U/L (17-59); BILIRUBIN,DIRECT 0.2 mg/dL (0.0-0.4); BILIRUBIN,TOTAL 0.9 mg/dL (0.2-1.3); BLOOD UREA NITROGEN 44 mg/dL (7-20); CALCIUM 9.1 mg/dL (8.4-10.2); CARBON DIOXIDE 24 mmol/L (22-30); CHLORIDE 109 mmol/L (98-107); GLUCOSE 172 mg/dL (75-110); POTASSIUM 4.4 mmol/L (3.6-5.0); SODIUM 144.5 mmol/L (137-145); TOTAL PROTEIN 6.1 g/dL (6.3-8.2)
[2018-04-05] MEDS: INSULIN LISPRO 100 UNIT/ML 3 ML VIAL SUBCUT PRN ×2 (09:37→12:41)
[2018-04-05] MEDS: FUROSEMIDE INJ/PF 40 MG/4 ML SDV IV SCH (09:40)
[2018-04-05] MEDS: OMEGA-3 ACID ETHYL ESTERS 1 GM CAPSULE PO SCH ×2 (09:40→17:47)
[2018-04-05] MEDS: CARVEDILOL 12.5 MG TABLET PO SCH ×2 (09:40→22:25)
[2018-04-05] MEDS: LISINOPRIL 10 MG TABLET PO SCH (09:41)
[2018-04-05] MEDS: GEMFIBROZIL 600 MG TABLET PO SCH ×2 (09:44→17:47)
[2018-04-05] MEDS: INSULIN ASPART SUBCUT SCH ×3 (09:47→18:46)
[2018-04-05] MEDS ORDERED: (PENDING PHARMACY ID) (Lisinopril [Prinivil 40 Mg Tablet] 20 MG) PO SCH (10:00)
[2018-04-05] MEDS ORDERED: CALCITRIOL 0.25 MCG CAPSULE PO SCH ×2 (10:00→21:39)
--- NOTE | 2018-04-05 14:21 | PDOC PROGRESS REPORT ---
Subjective Progress Note for:: 04/05/18 Subjective:: 04/03/2018. No acute events overnight. Patient complaining of generalized low appetite, swelling and left lower extremity pain. Denies any fever, nausea, vomiting, diarrhea, constipation or any urinary symptoms. 04/04/2018. No acute events overnight. He is stating that he is feeling better than yesterday but is still complaining of generalized swelling especially worse on the right upper extremity. Denies any nausea, vomiting, diarrhea, constipation or any urinary symptoms. 04/05/2018. No acute events overnight. Patient is saying that he is feeling better than yesterday and his swelling has been improving. He had a good night sleep he is p.o. tolerant ambulatory and having normal bowel and bladder movements. Denies any fever, nausea, vomiting, chills, chest pain, diarrhea or any constipation. Reason For Visit: ACUTE RENAL FAILURE Physical Exam Vital Signs: Temp Pulse Resp BP Pulse Ox 98.2 F 85 14 151/79 H 95 04/05/18 07:42 04/05/18 07:56 04/05/18 07:42 04/05/18 07:42 04/05/18 07:42 Intake & Output 04/04/18 04/05/18 04/06/18 06:59 06:59 06:59 Intake Total 3135 2145 Output Total 1950 2450 Balance 1185 -305 Weight 110.4 kg 110.2 kg General appearance: PRESENT: no acute distress, well-developed, well-nourished Head exam: PRESENT: atraumatic, normocephalic Respiratory exam: PRESENT: clear to auscultation trevor. ABSENT: rales, rhonchi, wheezes Cardiovascular exam: PRESENT: RRR. ABSENT: diastolic murmur, rubs, systolic murmur GI/Abdominal exam: PRESENT: normal bowel sounds, soft. ABSENT: distended, guarding, mass, organolmegaly, rebound, tenderness Extremities exam: PRESENT: pedal edema - Trace Skin exam: PRESENT: dry, intact, warm. ABSENT: cyanosis, rash Results Laboratory Results: 04/05/18 05:09 04/05/18 05:09 04/04/18 04/05/18 04/05/18 16:30 05:09 05:09 WBC 4.7 RBC 2.75 L Hgb 8.5 L Hct 23.8 L MCV 86 MCH 31.0 MCHC 35.9 RDW 13.1 Plt Count 143 L Seg Neutrophils % 62.8 Lymphocytes % 25.2 Monocytes % 9.8 Eosinophils % 1.4 Basophils % 0.8 Absolute Neutrophils 3.0 Absolute Lymphocytes 1.2 Absolute Monocytes 0.5 Absolute Eosinophils 0.1 Absolute Basophils 0.0 Sodium 144.5 Potassium 4.4 Chloride 109 H Carbon Dioxide 24 Anion Gap 12 BUN 44 H Creatinine 3.63 H Est GFR ( Amer) 23 L Est GFR (Non-Af Amer) 19 L Glucose 172 H Calcium 9.1 Phosphorus 4.4 Magnesium 1.9 Total Bilirubin 0.9 AST 19 ALT 13 L Alkaline Phosphatase 71 Total Protein 6.1 L Albumin 3.3 L Impressions: Renal Ultrasound 04/02/18 00:00 IMPRESSION: Unremarkable appearance to the kidneys. Subjective urinary bladder wall thickening. copyright 2010 [employer]- All Rights Reserved Chest X-Ray 04/02/18 01:47 IMPRESSION: No acute cardiopulmonary process copyright 2010 [employer]- All Rights Reserved Hand X-Ray 04/03/18 00:00 IMPRESSION: Soft tissue swelling. No acute osseous abnormality. Assessment & Plan - Diagnosis (1) Acute on chronic renal failure Qualifiers: Acute renal failure type: unspecified Chronic kidney disease stage: stage 4 (severe) Qualified Code(s): N17.9 - Acute kidney failure, unspecified; N18.4 - Chronic kidney disease, stage 4 (severe); N18.4 - Chronic kidney disease , stage 4 (severe); N18.4 - Chronic kidney disease, stage 4 (severe); N18.4 - Chronic kidney disease, stage 4 (severe) Is this a current diagnosis for this admission?: Yes Plan: Likely due to volume depletion. Has history of stage stage III/IV CKD seen by gardening supervisor as outpatient. Baseline creatinine 2.01 on 2017. PTH level 186. Creatinine on admission 4.43. Is stable at 3-4 since admission. Likely his new baseline. Renal ultrasound shows kidneys with normal size for hydronephrosis. Patient received aggressive volume resuscitation on admission due to hypotension and dehydration which may have inadvertently volume overloaded him. Patient is not oliguric started on diuretics by nephrology. Strict in and out. Monitor volume status. Avoid nephrotoxic agents. Restarted lisinopril on 04/05/2018. Creatinine stable, electrolytes within normal limits and vitals are stable patient will be DC'd home tomorrow to follow-up with his gardening supervisor and PCP. Neurology following. (2) Acute alcohol intoxication Qualifiers: Complication of substance-induced condition: uncomplicated Qualified Code(s ): F10.929 - Alcohol use, unspecified with intoxication, unspecified Is this a current diagnosis for this admission?: Yes Plan: Does not seem to be in withdrawal. Continue monitoring for withdrawal. (3) Hypertriglyceridemia Is this a current diagnosis for this admission?: Yes Plan: Triglyceride more than 1700 on admission. Repeat triglyceride on 04/03/2018 1020. Patient was counseled about the risk of possible pancreatitis if hypertriglyceridemia remains untreated. We will start on gemfibrozil and omega-3 fatty acid. Hold statins as it increases risk of myositis if given along with gemfibrozil. Already receiving insulin for his underlying diabetes. (4) Intractable nausea and vomiting Qualifiers: Vomiting type: unspecified Qualified Code(s): R11.2 - Nausea with vomiting , unspecified Is this a current diagnosis for this admission?: Yes Plan: Resolved. Likely due to alcohol intoxication and azotemia. Continue antiemetics. Treat underlying uremia. Monitor for alcohol withdrawal. (5) Uncontrolled diabetes mellitus Qualifiers: Diabetes mellitus type: type 2 Is this a current diagnosis for this admission?: Yes Plan: Controlled. A1c 9.3 on admission. Continue degludec, sliding scale insulin, pre-meal insulin, Accu-Chek, diabetic education. Adjust insulin dosage as needed. (6) Hypertension Qualifiers: Hypertension type: essential hypertension Qualified Code(s): I10 - Essential (primary) hypertension Is this a current diagnosis for this admission?: Yes Plan: Uncontrolled. Continue calcium channel blockers, carvedilol, lisinopril and Lasix. (7) Anemia in chronic kidney disease Qualifiers: Chronic kidney disease stage: stage 4 (severe) Qualified Code(s): N18.4 - Chronic kidney disease, stage 4 (severe); D63.1 - Anemia in chronic kidney disease; D63.1 - Anemia in chronic kidney disease Is this a current diagnosis for this admission?: Yes Plan: Low iron, elevated ferritin. Termination of iron deficiency anemia and anemia of chronic disease. Will get stool guaiac. Was given 1 dose of Injectafer by nephrology. Will be started on Procrit after [place]. Daily CBC, supportive transfusions if needed. (8) Proteinuria due to type 2 diabetes mellitus Is this a current diagnosis for this admission?: Yes Plan: Protein to creatinine ratio is 2.5. Restart lisinopril. CMP tomorrow.
--- NOTE | 2018-04-05 21:37 | PDOC PROGRESS REPORT ---
Subjective Progress Note for:: 04/05/18 Subjective:: Patient continues to do well. His blood pressure is much better today with adjustments of medications. Blood sugars are also improving. He continues to make adequate urine output. Swelling continues to slowly improve. Reason For Visit: ACUTE RENAL FAILURE Physical Exam Vital Signs: Temp Pulse Resp BP Pulse Ox 97.8 F 85 12 127/69 H 92 04/05/18 16:00 04/05/18 16:00 04/05/18 16:00 04/05/18 16:00 04/05/18 16:00 Intake & Output 04/04/18 04/05/18 04/06/18 06:59 06:59 06:59 Intake Total 3135 2145 340 Output Total 1950 2450 Balance 1185 -305 340 Weight 110.4 kg 110.2 kg Exam: General appearance: PRESENT: no acute distress, cooperative, well-developed, well-nourished Head exam: PRESENT: atraumatic, normocephalic Eye exam: PRESENT: conjunctiva pale, decrease facial swelling PERRLA. ABSENT: scleral icterus Neck exam: ABSENT: JVD Respiratory exam: PRESENT: Normal breath sounds. ABSENT: crackles, rales, rhonchi, unlabored, wheezes Cardiovascular exam: PRESENT: Regular rate rhythm -+S1, +S2. ABSENT: diastolic murmur, systolic murmur GI/Abdominal exam: PRESENT: normal bowel sounds, soft. ABSENT: guarding, mass, tenderness Extremities exam: Grade 1 bilateral lower extremity edema, right greater than the left Neurological exam: PRESENT: alert, awake, oriented to person, place and time. Skin exam: PRESENT: dry, warm, Results Laboratory Results: 04/05/18 05:09 04/05/18 05:09 04/05/18 04/05/18 04/05/18 05:09 05:09 05:09 WBC 4.7 RBC 2.75 L Hgb 8.5 L Hct 23.8 L MCV 86 MCH 31.0 MCHC 35.9 RDW 13.1 Plt Count 143 L Seg Neutrophils % 62.8 Lymphocytes % 25.2 Monocytes % 9.8 Eosinophils % 1.4 Basophils % 0.8 Absolute Neutrophils 3.0 Absolute Lymphocytes 1.2 Absolute Monocytes 0.5 Absolute Eosinophils 0.1 Absolute Basophils 0.0 Sodium 144.5 Potassium 4.4 Chloride 109 H Carbon Dioxide 24 Anion Gap 12 BUN 44 H Creatinine 3.63 H Est GFR ( Amer) 23 L Est GFR (Non-Af Amer) 19 L Glucose 172 H Calcium 9.1 Phosphorus 4.5 Magnesium 1.9 Total Bilirubin 0.9 AST 19 ALT 13 L Alkaline Phosphatase 71 Total Protein 6.1 L Albumin 3.3 L Impressions: Renal Ultrasound 04/02/18 00:00 IMPRESSION: Unremarkable appearance to the kidneys. Subjective urinary bladder wall thickening. copyright 2010 [employer]- All Rights Reserved Chest X-Ray 04/02/18 01:47 IMPRESSION: No acute cardiopulmonary process copyright 2010 [employer]- All Rights Reserved Hand X-Ray 04/03/18 00:00 IMPRESSION: Soft tissue swelling. No acute osseous abnormality. Assessment & Plan - Diagnosis (1) Acute on chronic renal failure Qualifiers: Acute renal failure type: unspecified Chronic kidney disease stage: stage 4 (severe) Qualified Code(s): N17.9 - Acute kidney failure, unspecified; N18.4 - Chronic kidney disease, stage 4 (severe); N18.4 - Chronic kidney disease , stage 4 (severe); N18.4 - Chronic kidney disease, stage 4 (severe); N18.4 - Chronic kidney disease, stage 4 (severe) Is this a current diagnosis for this admission?: Yes Plan: Improving with diuretics. We will continue the same. Change Lasix to 40 mg p.o. twice daily in preparation for discharge home. Once discharged home advised patient to follow-up with his public accountant, Dr. Liz in [place] in the next 1-2 weeks. (2) Chronic kidney disease, stage IV (severe) Is this a current diagnosis for this admission?: Yes Plan: His urine protein to creatinine ratio is 2.5. Agree with resuming lisinopril today. I think the patient is at his baseline kidney function at this time. (3) Anasarca associated with disorder of kidney Is this a current diagnosis for this admission?: Yes Plan: Change IV Lasix to oral Lasix 40 mg twice daily (4) Anemia in chronic kidney disease Qualifiers: Chronic kidney disease stage: stage 4 (severe) Qualified Code(s): N18.4 - Chronic kidney disease, stage 4 (severe); D63.1 - Anemia in chronic kidney disease; D63.1 - Anemia in chronic kidney disease Is this a current diagnosis for this admission?: Yes Plan: I will give Procrit 40,000 units subcutaneously x1 dose today. This might need to be continued every 1-2 weeks so I strongly advised the patient to follow-up with his public accountant, Dr. Haas in [place]. (5) Iron deficiency anemia Is this a current diagnosis for this admission?: Yes Plan: Patient received 1 dose of IV Injectafer 750 mg intravenously yesterday. (6) Hypertension Qualifiers: Hypertension type: essential hypertension Qualified Code(s): I10 - Essential (primary) hypertension Is this a current diagnosis for this admission?: Yes Plan: Much improved today with medication changes. (7) Acute alcohol intoxication Qualifiers: Complication of substance-induced condition: uncomplicated Qualified Code(s ): F10.929 - Alcohol use, unspecified with intoxication, unspecified Is this a current diagnosis for this admission?: Yes Plan: Resolved. (8) Hypertriglyceridemia Is this a current diagnosis for this admission?: Yes (9) Uncontrolled diabetes mellitus Qualifiers: Diabetes mellitus type: type 2 Is this a current diagnosis for this admission?: Yes (10) Secondary hyperparathyroidism Is this a current diagnosis for this admission?: Yes Plan: Start calcitriol. - Notes Notes: From nephrology standpoint the patient can be safely discharged home tomorrow with follow-up with his public accountant in 1-2 weeks. - Time Time with patient: 15-25 minutes
[2018-04-05] MEDS: ATORVASTATIN CALCIUM 20 MG TABLET PO SCH (22:25)
[2018-04-05] MEDS: AMLODIPINE BESYLATE 10 MG TABLET PO SCH (22:25)
[2018-04-05] MEDS: TRESIBA U SUBCUT SCH (22:26)
[2018-04-05] MEDS ORDERED: EPOETIN ALFA INJ 40000 UNIT/1 ML (RENAL) SUBCUT ONE (22:30)
[2018-04-06] MEDS: HEPARIN SOD (PORCINE) 5,000 UNIT/ML 1 ML SYRINGE SUBCUT SCH (05:18)
[2018-04-06 05:32] LABS: ABSOLUTE BASOPHILS # (AUTO) 0.1 10^3/uL (0.0-0.2); ABSOLUTE EOSINOPHILS # (AUTO) 0.1 10^3/uL (0.0-0.6); ABSOLUTE LYMPHOCYTES (AUTO) 1.1 10^3/uL (0.5-4.7); ABSOLUTE MONOCYTES (AUTO) 0.5 10^3/uL (0.1-1.4); ABSOLUTE NEUT (AUTO) 2.5 10^3/uL (1.7-8.2); BASOPHILS % (AUTO) 1.3 % (0-2); EOSINOPHILS % (AUTO) 1.5 % (0-6); HEMATOCRIT 24.3 % (37.9-51.0); HEMOGLOBIN 8.8 g/dL (13.5-17.0); LYMPHOCYTES % (AUTO) 26.3 % (13-45); MEAN CORPUSCULAR HEMOGLOBIN 31.1 pg (27.0-33.4); MEAN CORPUSCULAR HGB CONC 36.3 g/dL (32.0-36.0); MEAN CORPUSCULAR VOLUME 86 fl (80-97); MONOCYTES % (AUTO) 10.8 % (3-13); PLATELET COUNT 143 10^3/uL (150-450); RED BLOOD COUNT 2.83 10^6/uL (4.35-5.55); RED CELL DISTRIBUTION WIDTH 13.2 % (11.5-14.0); SEGMENTED NEUTROPHILS % (AUTO) 60.1 % (42-78); TOTAL CELLS COUNTED % (AUTO) 100 %; WHITE BLOOD COUNT 4.2 10^3/uL (4.0-10.5)
[2018-04-06 05:55] LABS: ANION GAP 11 (5-19); BLOOD UREA NITROGEN 46 mg/dL (7-20); CALCIUM 9.2 mg/dL (8.4-10.2); CARBON DIOXIDE 26 mmol/L (22-30); CHLORIDE 108 mmol/L (98-107); GLUCOSE 105 mg/dL (75-110); POTASSIUM 4.4 mmol/L (3.6-5.0); SODIUM 144.6 mmol/L (137-145)
[2018-04-06] MEDS ORDERED: FUROSEMIDE 40 MG TABLET PO SCH (10:00)
[2018-04-06] MEDS: OMEGA-3 ACID ETHYL ESTERS 1 GM CAPSULE PO SCH (10:47)
[2018-04-06] MEDS: LISINOPRIL 10 MG TABLET PO SCH (10:47)
[2018-04-06] MEDS: CARVEDILOL 12.5 MG TABLET PO SCH (10:48)
[2018-04-06] MEDS: GEMFIBROZIL 600 MG TABLET PO SCH (10:50)
[2018-04-06] MEDS: INSULIN ASPART SUBCUT SCH (10:50)
--- NOTE | 2018-04-06 14:03 | PDOC DISCHARGE SUMMARY ---
General - Admit/Disc Date/PCP Admission Date/Primary Care Provider: 04/02/18 04:32 LELE KOWALSKI PA-C Discharge Date: 04/06/18 - Discharge Diagnosis (1) Acute on chronic renal failure Is this a current diagnosis for this admission?: Yes (2) Acute alcohol intoxication Is this a current diagnosis for this admission?: Yes (3) Hypertriglyceridemia Is this a current diagnosis for this admission?: Yes (4) Intractable nausea and vomiting Is this a current diagnosis for this admission?: Yes (5) Uncontrolled diabetes mellitus Is this a current diagnosis for this admission?: Yes (6) Hypertension Is this a current diagnosis for this admission?: Yes (7) Anemia in chronic kidney disease Is this a current diagnosis for this admission?: Yes (8) Proteinuria due to type 2 diabetes mellitus Is this a current diagnosis for this admission?: Yes - Additional Information Resuscitation Status: Full Code Discharge Diet: As Tolerated Discharge Activity: Activity As Tolerated Prescriptions: Carvedilol [Coreg 12.5 mg Tablet] 25 mg PO Q12 30 Days #30 tablet Docusate Calcium [Stool Softener] 240 mg PO BID #60 capsule Ferrous Sulfate 325 mg PO DAILY 30 Days #30 tablet. Folic Acid/Vitamin B Comp W-C [Zoya-Rossana Tablet] 0.8 mg PO DAILY 30 Days #30 tablet Furosemide [Lasix 40 mg Tablet] 40 mg PO BID 30 Days #30 tablet Gemfibrozil [Lopid 600 mg Tablet] 600 mg PO BID 30 Days #60 tablet Lisinopril [Prinivil 10 mg Tablet] 20 mg PO DAILY 30 Days #30 tablet [place]-3 Acid Ethyl Esters [Lovaza 1 gm Capsule] 1 gm PO BID 30 Days #60 capsule Home Medications: Amlodipine Besylate [Norvasc 10 mg Tablet] 10 mg PO QHS 04/02/18 Cholecalciferol (Vitamin D3) [Vitamin D3] 2 cap PO MOTH@1000 04/02/18 Carvedilol [Coreg 12.5 mg Tablet] 25 mg PO Q12 30 Days #30 tablet 04/06/18 Docusate Calcium [Stool Softener] 240 mg PO BID #60 capsule 04/06/18 Ferrous Sulfate 325 mg PO DAILY 30 Days #30 tablet. 04/06/18 Folic Acid/Vitamin B Comp W-C [Zoya-Rossana Tablet] 0.8 mg PO DAILY 30 Days #30 tablet 04/06/18 Furosemide [Lasix 40 mg Tablet] 40 mg PO BID 30 Days #30 tablet 04/06/18 Gemfibrozil [Lopid 600 mg Tablet] 600 mg PO BID 30 Days #60 tablet 04/06/18 Insulin Aspart [Novolog Flexpen] 20 unit SQ TID 30 Days #10 ml 04/06/18 Insulin Degludec [Tresiba Flextouch U-100] 75 unit SQ QHS 30 Days #10 ml Lisinopril [Prinivil 10 mg Tablet] 20 mg PO DAILY 30 Days #30 tablet 04/06/18 [place]-3 Acid Ethyl Esters [Lovaza 1 gm Capsule] 1 gm PO BID 30 Days #60 capsule 04/06/18 History of Present Illness History of Present Illness: NABIL CALZADA is a 37 year old male Hospital Course Hospital Course: NABIL CALZADA is a 37 year old male with medical history of diabetes mellitus diagnosed about 15 years ago, hypertension, cholesterol, CKD stage III. Presented to the emergency department accompanied by his family after being in a [employer] where he was drinking, as per his brother he got drunk and he was sat on a chair when he started having several episodes of nonbloody vomiting, at some point his brother tells me that he passed out and at the time they decided to call EMS. Patient stays with his brother who tells me that he says patient given insulin to himself at night but he does not know if he takes it during the day, apparently his blood sugar is not well controlled and the flute twice in between 342 500 mg/dL. His mother tells me also his triglyceride he denies are extremely elevated improving from 1000-800. Mother tells me that he is on Lasix at home as he retains fluid, sometimes he has a very swollen face, his Lasix has been decreased to 40 mg 3 times a day 3 months ago. He follows with nephrology at [facility]. Laboratory in the emergency department shows a BUN of 68 and creatinine 4.43, our last blood work is from March last year with a BUN of 24 and creatinine 1.88. His mother tells me that during the last visit with the bell person they have been told that his renal function has deteriorates from prior laboratory and is 20%. In the ED patient is arousable with painful stimuli but falls asleep easily, is unable to answer any questions. (1) Acute on chronic renal failure Likely due to volume depletion. Has history of stage stage III/IV CKD seen by bell person as outpatient. Baseline creatinine 2.01 on 2017. PTH level 186. Creatinine on admission 4.43. Is stable at 3-4 since admission. Likely his new baseline. Renal ultrasound shows kidneys with normal size for hydronephrosis. Nonoliguric. Was started on Lasix. Was placed on strict in and out. Advised to avoid nephrotoxic agents. Restarted lisinopril on 04/05/2018. Nephrology was consulted. Patient had an appointment with his bell person at [facility]. (2) Acute alcohol intoxication Did not have any withdrawal symptoms during hospitalization. (3) Hypertriglyceridemia Triglyceride more than 1700 on admission. Repeat triglyceride on 04/03/2018 1020. Patient was counseled about the risk of possible pancreatitis if hypertriglyceridemia remains untreated. We will start on gemfibrozil and omega-3 fatty acid. Hold statins as it increases risk of myositis if given along with gemfibrozil. Was discharged on omega-3 fatty acids and gemfibrozil. Counseled on diet modification. (4) Intractable nausea and vomiting Resolved. Likely due to alcohol intoxication and azotemia. Continue antiemetics. Treat underlying uremia. Monitor for alcohol withdrawal. (5) Uncontrolled diabetes mellitus Controlled. A1c 9.3 on admission. Continue degludec, sliding scale insulin, pre-meal insulin, Accu-Chek, diabetic education. Doses were adjusted during hospitalization and patient was informed about doses. He was asked to follow-up with PCP to reassess his dosage as needed. Given diabetic education. (6) Hypertension Controlled. He was started on amlodipine, carvedilol, Lasix, lisinopril. He is to follow-up with his PCP to adjust his medication if needed. (7) Anemia in chronic kidney disease Low iron, elevated ferritin. Termination of iron deficiency anemia and anemia of chronic disease. Will get stool guaiac. Was given 1 dose of Injectafer by nephrology. Received Procrit. As to follow-up with his bell person for another dose of Procrit. (8) Proteinuria due to type 2 diabetes mellitus Protein to creatinine ratio is 2.5. Restart lisinopril. Physical Exam Vital Signs: Temp Pulse Resp BP Pulse Ox 98.0 F 79 16 135/77 H 98 04/06/18 08:43 04/06/18 08:43 04/06/18 08:43 04/06/18 08:43 04/06/18 08:43 Intake & Output 04/05/18 04/06/18 04/07/18 06:59 06:59 06:59 Intake Total 2145 2040 Output Total 2450 Balance -305 2040 Weight 110.2 kg 113.2 kg Results Laboratory Results: 04/06/18 04:58 04/06/18 04:58 04/05/18 04/06/18 04/06/18 05:09 04:58 04:58 WBC 4.2 RBC 2.83 L Hgb 8.8 L Hct 24.3 L MCV 86 MCH 31.1 MCHC 36.3 H RDW 13.2 Plt Count 143 L Seg Neutrophils % 60.1 Lymphocytes % 26.3 Monocytes % 10.8 Eosinophils % 1.5 Basophils % 1.3 Absolute Neutrophils 2.5 Absolute Lymphocytes 1.1 Absolute Monocytes 0.5 Absolute Eosinophils 0.1 Absolute Basophils 0.1 Sodium 144.6 Potassium 4.4 Chloride 108 H Carbon Dioxide 26 Anion Gap 11 BUN 46 H Creatinine 3.68 H Est GFR ( Amer) 22 L Est GFR (Non-Af Amer) 18 L Glucose 105 Calcium 9.2 Phosphorus 4.5 Impressions: Renal Ultrasound 04/02/18 00:00 IMPRESSION: Unremarkable appearance to the kidneys. Subjective urinary bladder wall thickening. copyright 2011 [employer]- All Rights Reserved Chest X-Ray 04/02/18 01:47 IMPRESSION: No acute cardiopulmonary process copyright 2010 [employer]- All Rights Reserved Hand X-Ray 04/03/18 00:00 IMPRESSION: Soft tissue swelling. No acute osseous abnormality. Qualifiers - * PATIENT BEING DISCHARGED WITH ANY OF THE FOLLOWING DIAGNOSIS: No
[2018-04-06 15:11] VITALS: BP 127/69
[2018-04-06 16:39] LABS: A/G RATIO 0.9 (0.7-1.7); ALBUMIN 2 2.9 g/dL (2.9-4.4); ALPHA-2-GLOBULIN 2 1.1 g/dL (0.4-1.0); GAMMA GLOBULIN 0.7 g/dL (0.4-1.8); GLOBULIN TOTAL 3.1 g/dL (2.2-3.9); MONOCLONAL SPIKE Not Observed g/dL (Not Observ)
== END 2018-04-06 16:00 | disposition home or self-care (01) | DRG 683 ==
LOC: ER 23:31 → EH 04-02 04:32 → 4S 04-02 12:37
PROVIDERS: ADMIT Internal Medicine; ATTEND Internal Medicine
DX: N17.9 Acute kidney failure, unspecified (principal); E87.2 Acidosis; F10.129 Alcohol abuse with intoxication, unspecified; N18.4 Chronic kidney disease, stage 4 (severe); N25.81 Secondary hyperparathyroidism of renal origin; I12.9 Hypertensive chronic kidney disease with stage 1 through stage 4 chronic kidney disease, or unspecified chronic kidney disease; E11.65 Type 2 diabetes mellitus with hyperglycemia; D63.1 Anemia in chronic kidney disease; E11.319 Type 2 diabetes mellitus with unspecified diabetic retinopathy without macular edema; E11.21 Type 2 diabetes mellitus with diabetic nephropathy; E11.22 Type 2 diabetes mellitus with diabetic chronic kidney disease; E78.5 Hyperlipidemia, unspecified; E78.1 Pure hyperglyceridemia; R80.9 Proteinuria, unspecified; Y90.6 Blood alcohol level of 120-199 mg/100 ml; Z79.84 Long term (current) use of oral hypoglycemic drugs; Z79.4 Long term (current) use of insulin; Z79.899 Other long term (current) drug therapy
CPT/HCPCS: 36415; 71046; 76770; 80048; 80053; 80061; 80307; 81001; 82570; 82607; 82728; 82746; 82803; 82962; 83036; 83540; 83550; 83605; 83690; 83735; 83970; 84100; 84156; 84165; 84300; 85025; 85045; 85610; 85652; 86140; 86430; 87040; 87086; 93005; 93010; 93971; 96361; 96374; 99285; J1439; J1644; J1815; J1940; J2765; J3490; J7030; Q4081; S0164

== ENCOUNTER 2019-01-07 23:40 | Emergency (ER) | payer MEDICARE, OTHER ==
[2019-01-08 00:19] LABS: ABSOLUTE BASOPHILS # (AUTO) 0.1 10^3/uL (0.0-0.2); ABSOLUTE EOSINOPHILS # (AUTO) 0.1 10^3/uL (0.0-0.6); ABSOLUTE LYMPHOCYTES (AUTO) 1.2 10^3/uL (0.5-4.7); ABSOLUTE MONOCYTES (AUTO) 0.5 10^3/uL (0.1-1.4); BASOPHILS % (AUTO) 1.3 % (0-2); HEMATOCRIT 34.4 % (37.9-51.0); HEMOGLOBIN 12.1 g/dL (13.5-17.0); LYMPHOCYTES % (AUTO) 20.7 % (13-45); MEAN CORPUSCULAR HEMOGLOBIN 29.4 pg (27.0-33.4); MEAN CORPUSCULAR HGB CONC 35.2 g/dL (32.0-36.0); MEAN CORPUSCULAR VOLUME 84 fl (80-97); MONOCYTES % (AUTO) 8.6 % (3-13); PLATELET COUNT 209 10^3/uL (150-450); RED BLOOD COUNT 4.12 10^6/uL (4.35-5.55); RED CELL DISTRIBUTION WIDTH 14.6 % (11.5-14.0); SEGMENTED NEUTROPHILS % (AUTO) 68.4 % (42-78); TOTAL CELLS COUNTED % (AUTO) 100 %; WHITE BLOOD COUNT 5.9 10^3/uL (4.0-10.5)
--- NOTE | 2019-01-08 00:24 | RADIOLOGY REPORT (SQ) ---
CLINICAL HISTORY: r/o stroke COMPARISON: None. TECHNIQUE: CT HEAD WITHOUT IV CONTRAST on 01/07/2019 12:00 AM CDT This exam was performed according to our departmental dose-optimization program, which includes automated exposure control, adjustment of the mA and/or kV according to patient size and/or use of iterative reconstruction technique. FINDINGS: There is no acute hemorrhage, mass effect or midline shift. Duarte-white differentiation is preserved. There is no hydrocephalus. There is no significant volume loss for age. The calvarium is intact. Orbits and globes are unremarkable. The paranasal sinuses are clear. Mastoid air cells are clear. IMPRESSION: No acute intracranial findings.
[2019-01-08] MEDS ORDERED: HYDRALAZINE HCL INJ/PF 20 MG/1 ML SDV IV ONE (00:30)
[2019-01-08] MEDS ORDERED: DIPHENHYDRAMINE HCL 50 MG/ML VIAL IV ONE (00:30)
[2019-01-08] MEDS ORDERED: PROCHLORPERAZINE EDISYLATE INJ 10 MG/2 ML VIAL IV ONE (00:30)
[2019-01-08 00:42] LABS: ALBUMIN 4.3 g/dL (3.5-5.0); ALKALINE PHOSPHATASE 87 U/L (38-126); ANION GAP 13 (5-19); ASPARTATE AMINO TRANSFERASE 32 U/L (17-59); BILIRUBIN,DIRECT 0.3 mg/dL (0.0-0.4); BILIRUBIN,TOTAL 1.7 mg/dL (0.2-1.3); BLOOD UREA NITROGEN 41 mg/dL (7-20); CALCIUM 9.1 mg/dL (8.4-10.2); CARBON DIOXIDE 22 mmol/L (22-30); CHLORIDE 106 mmol/L (98-107); CREATINE KINASE 457 U/L (55-170); GLUCOSE 215 mg/dL (75-110); POTASSIUM 4.4 mmol/L (3.6-5.0); TOTAL PROTEIN 7.3 g/dL (6.3-8.2)
--- NOTE | 2019-01-08 00:46 | ER Document Report ---
ED Headache - General Chief Complaint: Headache, Worst Ever Stated Complaint: REPORTS HIGH BLOOD PRESSURE Time Seen by Provider: 01/08/19 00:01 Primary Care Provider: LELE KOWALSKI PA-C [Primary Care Provider] - Follow up as needed Mode of Arrival: Ambulatory Information source: Patient Notes: This 38-year-old male patient comes emergency room complaining of severe headache to his frontal head and back of his head. He reports being diaphoretic and having chills. He reports the headache come on rather suddenly on Tuesday, he is not sure what time a day that it occurred. He did have an injection in the left eye for retinal hemorrhage done at his retina specialist office in [place] on Tuesday. He does note that light makes the headache worse, and he thinks noise probably patient worse but he is not been around any loud noise. He does wear clonidine patch for hypertension. He takes lisinopril daily, and states he increased his dose to twice daily on Tuesday because his blood pressure was running high with these headaches. He states he was trying to hold out until tomorrow to see his doctor, but stated the headache was just too severe tonight. He has been nauseated for the last few days, but has not vomited. The patient does have severe hypertension and is on peritoneal dialysis. He states he makes plenty of urine does not going congestive heart failure. He started his last exchange about 11:00 tonight. About 25 minutes after I saw the patient, he told the nurse that he thinks he is starting to see some blood in his left eye. TRAVEL OUTSIDE OF THE [place] IN LAST 30 DAYS: No - Related Data Allergies/Adverse Reactions: No Known Allergies Allergy (Verified 01/08/19 00:10) Past Medical History - General Information source: Patient, [facility] Records - Social History Smoking Status: Never Smoker Cigarette use (# per day): No Chew tobacco use (# tins/day): No Smoking Education Provided: No Frequency of alcohol use: None Drug Abuse: None Occupation: carpenter foreman Lives with: Family Family History: Reviewed & Not Pertinent Patient has suicidal ideation: No Patient has homicidal ideation: No - Past Medical History Cardiac Medical History: Reports: Hx Hypercholesterolemia, Hx Hypertension EENT Medical History: Reports: Eyes - Diabetic retinopathy with retinal hemorrhage Endocrine Medical History: Reports: Hx Diabetes Mellitus Type 2 Renal/ Medical History: Reports: Hx End Stage Renal Disease, Hx Peritoneal Dialysis GI Medical History: Reports: Hx Gastroesophageal Reflux Disease Past Surgical History: Reports: Hx Abdominal Surgery - PD catheter, Other - Eye surgery 5 times due to diabetic retinopathy - Immunizations Immunizations up to date: Yes Hx Diphtheria, Pertussis, Tetanus Vaccination: Yes Review of Systems - Review of Systems Constitutional: No symptoms reported EENT: See HPI Cardiovascular: No symptoms reported Respiratory: No symptoms reported Gastrointestinal: See HPI, Nausea Genitourinary: No symptoms reported Musculoskeletal: No symptoms reported Skin: No symptoms reported Hematologic/Lymphatic: No symptoms reported Neurological/Psychological: No symptoms reported Physical Exam - Vital signs Vitals: Temp Pulse Resp BP Pulse Ox 97.7 F 118 H 18 232/169 H 99 01/07/19 23:40 01/07/19 23:40 01/07/19 23:40 01/07/19 23:40 01/07/19 23:40 Interpretation: Hypertensive, Tachycardic - General General appearance: Alert In distress: Moderate - Patient is very uncomfortable, tends to keep his eyes closed. - HEENT Head: Normocephalic, Atraumatic, Tenderness - There is some tenderness to percuss over the frontal sinuses. Eyes: Normal Pupils: PERRL Sinus: Other - There is no tenderness to palpate or percuss over the maxillary sinuses. Neck: Supple - Posterior cervical muscles are tender, with the left being worse than the right. Okay - Respiratory Respiratory status: No respiratory distress Breath sounds: Normal - Cardiovascular Rhythm: Regular, Tachycardia Heart sounds: Normal auscultation Murmur: No - Abdominal Inspection: Other - Patient has his peritoneal dialysis catheter. Bowel sounds: Normal Tenderness: Nontender - Back Back: Normal - Extremities General upper extremity: Normal inspection General lower extremity: Normal inspection - Neurological Neuro grossly intact: Yes - Psychological Associated symptoms: Normal affect, Normal mood - Skin Skin Temperature: Warm Skin Moisture: Dry Skin Color: Normal Course - Re-evaluation Re-evalutation: 01/08/19 03:08 When I talked with the patient about the sensation of seeing blood in the left eye, he stated that sensation is gone away when we lowered his blood pressure. He states now it feels back to normal, other than the headache which is also better than it had been. I did have another doctor to examine his eyes, as I was unable to focus on his retina. She likewise was unable to focus on the retina. - Vital Signs Vital signs: Temp Pulse Resp BP Pulse Ox 98.2 F 93 24 H 160/85 H 97 01/08/19 02:17 01/08/19 02:05 01/08/19 05:01 01/08/19 05:01 01/08/19 05:01 - Laboratory Result Diagrams: 01/07/19 23:47 01/07/19 23:47 Laboratory results interpreted by me: 01/07/19 01/07/19 01/08/19 23:47 23:47 03:20 RBC 4.12 L Hgb 12.1 L Hct 34.4 L RDW 14.6 H BUN 41 H Creatinine 5.38 H Est GFR ( Amer) 14 L Est GFR (MDRD) Non-Af 12 L Glucose 215 H Total Bilirubin 1.7 H Creatine Kinase 457 H 405 H - Diagnostic Test Radiology reviewed: Image reviewed, Reports reviewed - CT scan of the head is unremarkable. Chest x-ray is unremarkable. - EKG Interpretation by Me EKG shows normal: Sinus rhythm, [place], QRS Complexes, ST-T Waves. abnormal: Intervals - Borderline prolonged QT interval Rate: Normal - 96 Rhythm: NSR - Consults Dr. Landis Time consulted: 03:40 Consulted provider: other - Will accept at [facility]. - Transfer of Care Care transferred to following provider: Dr. Chavez Notes: 01/08/19 05:10 Patient is on a nicardipine drip to control his blood pressure. I have asked the nurses to shoot for systolic about 130. His headache is much better and he is comfortable now. He does not have the visual symptoms he had reported earlier. He is supposed to be receiving another peritoneal dialysate exchange while he is here in the waiting room pending transport. He is pending transport to [facility] at this time. I believe he does have a bed assignment, but transportation is the issue. Critical Care Note - Critical Care Note Total time excluding time spent on procedures (mins): 50 Discharge - Discharge Clinical Impression: Severe uncontrolled hypertension, Chronic renal failure, stage 4 (severe), Retinal hemorrhage of left eye Headache Qualifiers: Headache type: unspecified Headache chronicity pattern: acute headache Intractability: not intractable Qualified Code(s): R51 - Headache Condition: Stable Disposition: [facility] Referrals: LELE KOWALSKI PA-C [Primary Care Provider] - Follow up as needed
[2019-01-08] MEDS ORDERED: METOPROLOL TARTRATE PF/INJ 5 MG/5 ML SDV IV ONE (01:16)
[2019-01-08] MEDS: NICARDIPINE HCL RTU, ISO-OS 20 MG/200 ML RTUINJ IV PRN ×2 (02:05→07:27)
--- NOTE | 2019-01-08 07:57 | EKG REPORT ---
SEVERITY:- BORDERLINE ECG - SINUS RHYTHM BORDERLINE PROLONGED QT INTERVAL : Confirmed by: Ana Costello 08-Jan-2019 07:56:52
[2019-01-08 08:44] VITALS: BP 149/80
[2019-01-08] MEDS ORDERED: GENTAMICIN SULFATE 0.1% CREAM 15 GM TP SCH (10:00)
== END 2019-01-08 09:08 | disposition short-term general hospital (02) ==
LOC: ER 23:40
DX: I12.9 Hypertensive chronic kidney disease with stage 1 through stage 4 chronic kidney disease, or unspecified chronic kidney disease (principal); E11.22 Type 2 diabetes mellitus with diabetic chronic kidney disease; N18.4 Chronic kidney disease, stage 4 (severe); H35.62 Retinal hemorrhage, left eye; R51 Headache; R61 Generalized hyperhidrosis; R68.83 Chills (without fever)
CPT/HCPCS: 93005; 99291; 96375; 96365; 96366; 36415; 82550; 85025; 80053; 84484; 70450; 93010; 90945; J1200; J0360; J3490 ×2; J0780